=== PATIENT | female | born 1990 | race American Indian/Alaskan Native ===

== ENCOUNTER 2022-03-04 11:49 | Inpatient (IN) | payer MEDICAID ==
[2022-03-04] MEDS ORDERED: SODIUM CHLORIDE 0.9% 1000 ML 1,000 ML IV ONE ×2 (12:03→14:01)
[2022-03-04] MEDS ORDERED: NALOXONE 2 MG/2 ML INJ ONE (12:14)
[2022-03-04] MEDS ORDERED: NALOXONE 0.4 MG/1 ML INJ IV ONE (12:15)
[2022-03-04] MEDS ORDERED: NALOXONE 2 MG/2 ML 2 MG in SODIUM CHLORIDE 0.9% 500 ML 500 ML IV ONE (12:16)
[2022-03-04 12:43] LABS: Hematocrit 38.2 % (30.3-42.9); Mean Corpuscular HGB Conc 31 % (30-34); Mean Corpuscular Volume 87 fl (79-97); Platelet Count 447 K/mm3 (140-440); Red Blood Count 4.39 M/mm3 (3.65-5.03); Red Cell Distribution Width 16.3 % (13.2-15.2)
[2022-03-04 12:52] LABS: Amphetamine Screen,Urine Negative; Benzodiazepines Screen,Urine Negative; Methadone Screen,Urine Negative; Opiate Screen,Urine Negative
[2022-03-04 12:54] LABS: Cannabinoid Screen,Urine Positive; Cocaine Screen,Urine Positive
[2022-03-04 12:55] LABS: INR 1.12 (0.87-1.13)
[2022-03-04 13:03] LABS: Albumin 4.5 g/dL (3.9-5); Calcium 9.2 mg/dL (8.4-10.2)
[2022-03-04 13:06] LABS: Bacteria,Urine 1+ /HPF (Negative); Bilirubin,Urine NEG (Negative); Blood,Urine SM (Negative); Color,Urine Straw (Yellow); Mucus,Urine FEW /HPF; Urobilinogen,Urine < 2.0 mg/dL (<2.0)
[2022-03-04 13:07] LABS: HCG Qualitative,Urine Positive (Negative)
[2022-03-04 13:19] LABS: Band Neutrophils # (Manual) 0.9 K/mm3; Basophils % (Manual) 0 % (0.0-1.8); Eosinophils % (Manual) 0 % (0.0-4.3); Total Cells Counted 100
[2022-03-04 13:20] LABS: Anisocytosis 1+; Platelet Estimate Consistent w Auto
--- NOTE | 2022-03-04 15:21 | XRay Report ---
CHEST 1 VIEW INDICATION / CLINICAL INFORMATION: Altered Mental Status. COMPARISON: None available. FINDINGS: SUPPORT DEVICES: None. HEART / MEDIASTINUM: No significant abnormality. LUNGS / PLEURA: There is prominent confluent opacity throughout the left upper and midlung field. The right lung is grossly clear. No large pleural effusion or suggestion of pulmonary edema. No pneumoth orax. ADDITIONAL FINDINGS: No significant additional findings. IMPRESSION: 1. Large area of pulmonary opacity throughout the left lung. The appearance is most likely secondary to pneumonia. Please correlate clinically. Signer Name: Chitra Echeverria MD Signed: 03/04/2022 3:17 PM Workstation Name: [id number]
[2022-03-04] MEDS ORDERED: cefTRIAXone/NS 1 GM/50 ML 1 GM/50 ML BAG IV ONE (15:33)
--- NOTE | 2022-03-04 15:38 | Ultrasound Report ---
ULTRASOUND OBSTETRIC , FIRST TRIMESTER INDICATION / CLINICAL INFORMATION: AMS. Clinical Gestational Age (GA) in weeks, days: Unknown TECHNIQUE: Transabdominal. COMPARISON: None available. FINDINGS: UTERUS: The uterus has a normal appearance measuring 8.5 x 4.4 x 4.8 cm. Endometrial thickness is nor mal measuring 3 mm. No focal uterine mass identified. No gestational sac identified. ADNEXA: No significant abnormality. Both ovaries are well-visualized and appear normal. No adnexal ma ss. FREE FLUID: None. ADDITIONAL FINDINGS: None. IMPRESSION: 1. No evidence of IUP at this time. Please correlate with hCG levels. Signer Name: Chitra Echeverria MD Signed: 03/04/2022 3:34 PM Workstation Name: [id number]
--- NOTE | 2022-03-04 16:02 | Emergency Department Report ---
ED Altered Mental Status HPI - General Chief Complaint: Altered Mental Status Stated Complaint: AMS Time Seen by Provider: 03/04/22 11:58 Source: EMS Mode of arrival: Stretcher Limitations: Altered Mental Status - History of Present Illness Initial Comments: PT ARRIVING FROM HOME FOR AMS. AFIB RVR 140-160. NARCAN 0.4MG GIVEN. NO RESPONSE. HX SEIZURES 31 years old with past MH of HtN , brougt in to ER by ambulance for altered mental status , her kids tried to wake her up but she was unresponisve, not sure if she had seizure or not, but she doesn;t have history , EMS stated she reposnded well to narcan. pt admit to drug use , sleep and drowsy but arousable MD Complaint: altered mental status, confusion -: Gradual, hour(s) Severity: moderate Consistency of Symptoms: constant Context: drug abuse Associated Symptoms: denies: denies other symptoms, chest pain, cough, diaphoresis, fever/chills, headaches - Related Data Allergies Allergy/AdvReac Type Severity Reaction Status Date / Time No Known Allergies Allergy Unverified 03/04/22 12:40 ED Review of Systems ROS: Stated complaint: AMS Other details as noted in HPI Comment: Unobtainable due to pts medical conditions ED Past Medical Hx - Past Medical History Previous Medical History?: Yes Hx Hypertension: Yes - Surgical History Past Surgical History?: Yes Additional Surgical History: 2020 ED Physical Exam - General Limitations: Altered Mental Status General appearance: alert, lethargic - Head Head exam: Present: atraumatic, normocephalic - Eye Eye exam: Present: normal appearance - ENT ENT exam: Present: mucous membranes moist - Neck Neck exam: Present: normal inspection - Respiratory Respiratory exam: Present: normal lung sounds bilaterally, respiratory distress, rhonchi - Cardiovascular Cardiovascular Exam: Present: normal rhythm, tachycardia. Absent: systolic murmur, diastolic murmur, rubs, gallop - GI/Abdominal GI/Abdominal exam: Present: soft, normal bowel sounds - Extremities Exam Extremities exam: Present: normal inspection - Back Exam Back exam: Present: normal inspection - Expanded Neurological Exam Expanded Best Eye Response (Gail): (3) open to voice Best Motor Response (Bixby): (6) obeys commands Best Verbal Response (Bixby): (4) confused conversation Bixby Total: 13 - Skin Skin exam: Present: warm, dry, intact, normal color. Absent: rash ED Course Vital Signs 03/04/22 03/04/22 03/04/22 12:31 12:44 12:45 Temperature Pulse Rate 149 H 149 H 151 H Respiratory 19 14 Rate Blood Pressure Blood Pressure [Right] O2 Sat by Pulse 100 100 Oximetry 03/04/22 03/04/22 03/04/22 12:48 12:52 13:01 Temperature 97.2 F L Pulse Rate 151 H 149 H Respiratory 15 18 21 Rate Blood Pressure 107/74 Blood Pressure 107/74 [Right] O2 Sat by Pulse 100 94 82 L Oximetry 03/04/22 03/04/22 03/04/22 13:15 13:31 13:45 Temperature Pulse Rate 136 H 151 H 147 H Respiratory 18 15 13 Rate Blood Pressure 107/76 110/69 110/76 Blood Pressure [Right] O2 Sat by Pulse 98 100 100 Oximetry 03/04/22 03/04/22 14:01 14:15 Temperature Pulse Rate 150 H 150 H Respiratory 13 15 Rate Blood Pressure 100/76 102/72 Blood Pressure [Right] O2 Sat by Pulse 100 84 Oximetry - Lab Data Result diagrams: 03/04/22 12:20 03/04/22 12:20 Lab Results 03/04/22 03/04/22 03/04/22 Range/Units 12:20 12:20 12:20 WBC 13.1 H (4.5-11.0) K/mm3 RBC 4.39 (3.65-5.03) M/mm3 Hgb 12.0 (10.1-14.3) gm/dl Hct 38.2 (30.3-42.9) % MCV 87 (79-97) fl MCH 27 L (28-32) pg MCHC 31 (30-34) % RDW 16.3 H (13.2-15.2) % Plt Count 447 H (140-440) K/mm3 Add Manual Diff Complete Total Counted 100 Seg Neuts % (Manual) 78.0 H (40.0-70.0) % Band Neutrophils % 7.0 % Lymphocytes % (Manual) 11.0 L (13.4-35.0) % Reactive Lymphs % (Man) 0 % Monocytes % (Manual) 3.0 (0.0-7.3) % Eosinophils % (Manual) 0 (0.0-4.3) % Basophils % (Manual) 0 (0.0-1.8) % Metamyelocytes % 1.0 % Myelocytes % 0 % Promyelocytes % 0 % Blast Cells % 0 % Nucleated RBC % Not Reportable Seg Neutrophils # Man 10.2 H (1.8-7.7) K/mm3 Band Neutrophils # 0.9 K/mm3 Lymphocytes # (Manual) 1.4 (1.2-5.4) K/mm3 Abs React Lymphs (Man) 0.0 K/mm3 Monocytes # (Manual) 0.4 (0.0-0.8) K/mm3 Eosinophils # (Manual) 0.0 (0.0-0.4) K/mm3 Basophils # (Manual) 0.0 (0.0-0.1) K/mm3 Metamyelocytes # 0.1 K/mm3 Myelocytes # 0.0 K/mm3 Promyelocytes # 0.0 K/mm3 Blast Cells # 0.0 K/mm3 WBC Morphology Not Reportable Hypersegmented Neuts Not Reportable Hyposegmented Neuts Not Reportable Hypogranular Neuts Not Reportable Smudge Cells Not Reportable Toxic Granulation Not Reportable Toxic Vacuolation Not Reportable Dohle Bodies Not Reportable Pelger-Huet Anomaly Not Reportable Kateryna Rods Not Reportable Platelet Estimate Consistent w auto Clumped Platelets Not Reportable Plt Clumps, EDTA Not Reportable Large Platelets Not Reportable Giant Platelets Not Reportable Platelet Satelliting Not Reportable Plt Morphology Comment Not Reportable RBC Morphology Not Reportable Dimorphic RBCs Not Reportable Polychromasia Not Reportable Hypochromasia Not Reportable Poikilocytosis Not Reportable Anisocytosis 1+ Microcytosis Not Reportable Macrocytosis Not Reportable Spherocytes Not Reportable Pappenheimer Bodies Not Reportable Sickle Cells Not Reportable Target Cells Not Reportable Tear Drop Cells Not Reportable Ovalocytes Not Reportable Helmet Cells Not Reportable [place] Bodies Not Reportable [place] Rings Not Reportable Tamiko Cells Not Reportable Bite Cells Not Reportable Crenated Cell Not Reportable Elliptocytes Not Reportable Acanthocytes (Spur) Not Reportable Rouleaux Not Reportable Hemoglobin C Crystals Not Reportable Schistocytes Not Reportable Malaria parasites Not Reportable Chucho Bodies Not Reportable Hem Pathologist Commnt No PT 15.7 H (12.2-14.9) Sec. INR 1.12 (0.87-1.13) D-Dimer 3882.77 H (0-234) ng/mlDDU Sodium 139 (137-145) mmol/L Potassium 5.0 (3.6-5.0) mmol/L Chloride 99.6 (98-107) mmol/L Carbon Dioxide 15 L (22-30) mmol/L Anion Gap 29 mmol/L BUN 18 H (7-17) mg/dL Creatinine 2.1 H (0.6-1.2) mg/dL Estimated GFR 28 ml/min BUN/Creatinine Ratio 9 % Glucose 81 (65-100) mg/dL Lactic Acid (0.7-2.0) mmol/L Calcium 9.2 (8.4-10.2) mg/dL Total Bilirubin 0.50 (0.1-1.2) mg/dL AST 206 H (5-40) units/L ALT 197 H (7-56) units/L Alkaline Phosphatase 140 H (35-129) units/L Total Creatine Kinase (30-135) units/L Total Protein 8.5 H (6.3-8.2) g/dL Albumin 4.5 (3.9-5) g/dL Albumin/Globulin Ratio 1.1 % HCG, Quant (0-4) mIU/mL Urine Color (Yellow) Urine Turbidity (Clear) Urine pH (5.0-7.0) Ur Specific [place] (1.003-1.030) Urine Protein (Negative) mg/dL Urine Glucose (UA) (Negative) mg/dL Urine Ketones (Negative) mg/dL Urine Blood (Negative) Urine Nitrite (Negative) Urine Bilirubin (Negative) Urine Urobilinogen (<2.0) mg/dL Ur Leukocyte Esterase (Negative) Urine WBC (Auto) (0.0-6.0) /HPF Urine RBC (Auto) (0.0-6.0) /HPF U Epithel Cells (Auto) (0-13.0) /HPF Urine Bacteria (Auto) (Negative) /HPF Urine Mucus /HPF Urine HCG, Qual (Negative) Salicylates (2.8-20.0) mg/dL Urine Opiates Screen Urine Methadone Screen Acetaminophen (10.0-30.0) ug/mL Ur Barbiturates Screen Ur Phencyclidine Scrn Ur Amphetamines Screen U Benzodiazepines Scrn Urine Cocaine Screen U Marijuana (THC) Screen Drugs of Abuse Note Plasma/Serum Alcohol (0-0.07) % 03/04/22 03/04/22 03/04/22 Range/Units 12:20 12:20 12:20 WBC (4.5-11.0) K/mm3 RBC (3.65-5.03) M/mm3 Hgb (10.1-14.3) gm/dl Hct (30.3-42.9) % MCV (79-97) fl MCH (28-32) pg MCHC (30-34) % RDW (13.2-15.2) % Plt Count (140-440) K/mm3 Add Manual Diff Total Counted Seg Neuts % (Manual) (40.0-70.0) % Band Neutrophils % % Lymphocytes % (Manual) (13.4-35.0) % Reactive Lymphs % (Man) % Monocytes % (Manual) (0.0-7.3) % Eosinophils % (Manual) (0.0-4.3) % Basophils % (Manual) (0.0-1.8) % Metamyelocytes % % Myelocytes % % Promyelocytes % % Blast Cells % % Nucleated RBC % Seg Neutrophils # Man (1.8-7.7) K/mm3 Band Neutrophils # K/mm3 Lymphocytes # (Manual) (1.2-5.4) K/mm3 Abs React Lymphs (Man) K/mm3 Monocytes # (Manual) (0.0-0.8) K/mm3 Eosinophils # (Manual) (0.0-0.4) K/mm3 Basophils # (Manual) (0.0-0.1) K/mm3 Metamyelocytes # K/mm3 Myelocytes # K/mm3 Promyelocytes # K/mm3 Blast Cells # K/mm3 WBC Morphology Hypersegmented Neuts Hyposegmented Neuts Hypogranular Neuts Smudge Cells Toxic Granulation Toxic Vacuolation Dohle Bodies Pelger-Huet Anomaly Kateryna Rods Platelet Estimate Clumped Platelets Plt Clumps, EDTA Large Platelets Giant Platelets Platelet Satelliting Plt Morphology Comment RBC Morphology Dimorphic RBCs Polychromasia Hypochromasia Poikilocytosis Anisocytosis Microcytosis Macrocytosis Spherocytes Pappenheimer Bodies Sickle Cells Target Cells Tear Drop Cells Ovalocytes Helmet Cells [place] Bodies [place] Rings Tamiko Cells Bite Cells Crenated Cell Elliptocytes Acanthocytes (Spur) Rouleaux Hemoglobin C Crystals Schistocytes Malaria parasites Chucho Bodies Hem Pathologist Commnt PT (12.2-14.9) Sec. INR (0.87-1.13) D-Dimer (0-234) ng/mlDDU Sodium (137-145) mmol/L Potassium (3.6-5.0) mmol/L Chloride (98-107) mmol/L Carbon Dioxide (22-30) mmol/L Anion Gap mmol/L BUN (7-17) mg/dL Creatinine (0.6-1.2) mg/dL Estimated GFR ml/min BUN/Creatinine Ratio % Glucose (65-100) mg/dL Lactic Acid 8.40 H* (0.7-2.0) mmol/L Calcium (8.4-10.2) mg/dL Total Bilirubin (0.1-1.2) mg/dL AST (5-40) units/L ALT (7-56) units/L Alkaline Phosphatase (35-129) units/L Total Creatine Kinase 112 (30-135) units/L Total Protein (6.3-8.2) g/dL Albumin (3.9-5) g/dL Albumin/Globulin Ratio % HCG, Quant (0-4) mIU/mL Urine Color (Yellow) Urine Turbidity (Clear) Urine pH (5.0-7.0) Ur Specific [place] (1.003-1.030) Urine Protein (Negative) mg/dL Urine Glucose (UA) (Negative) mg/dL Urine Ketones (Negative) mg/dL Urine Blood (Negative) Urine Nitrite (Negative) Urine Bilirubin (Negative) Urine Urobilinogen (<2.0) mg/dL Ur Leukocyte Esterase (Negative) Urine WBC (Auto) (0.0-6.0) /HPF Urine RBC (Auto) (0.0-6.0) /HPF U Epithel Cells (Auto) (0-13.0) /HPF Urine Bacteria (Auto) (Negative) /HPF Urine Mucus /HPF Urine HCG, Qual (Negative) Salicylates (2.8-20.0) mg/dL Urine Opiates Screen Urine Methadone Screen Acetaminophen (10.0-30.0) ug/mL Ur Barbiturates Screen Ur Phencyclidine Scrn Ur Amphetamines Screen U Benzodiazepines Scrn Urine Cocaine Screen U Marijuana (THC) Screen Drugs of Abuse Note Plasma/Serum Alcohol < 0.01 (0-0.07) % 03/04/22 03/04/22 03/04/22 Range/Units 12:20 12:20 12:20 WBC (4.5-11.0) K/mm3 RBC (3.65-5.03) M/mm3 Hgb (10.1-14.3) gm/dl Hct (30.3-42.9) % MCV (79-97) fl MCH (28-32) pg MCHC (30-34) % RDW (13.2-15.2) % Plt Count (140-440) K/mm3 Add Manual Diff Total Counted Seg Neuts % (Manual) (40.0-70.0) % Band Neutrophils % % Lymphocytes % (Manual) (13.4-35.0) % Reactive Lymphs % (Man) % Monocytes % (Manual) (0.0-7.3) % Eosinophils % (Manual) (0.0-4.3) % Basophils % (Manual) (0.0-1.8) % Metamyelocytes % % Myelocytes % % Promyelocytes % % Blast Cells % % Nucleated RBC % Seg Neutrophils # Man (1.8-7.7) K/mm3 Band Neutrophils # K/mm3 Lymphocytes # (Manual) (1.2-5.4) K/mm3 Abs React Lymphs (Man) K/mm3 Monocytes # (Manual) (0.0-0.8) K/mm3 Eosinophils # (Manual) (0.0-0.4) K/mm3 Basophils # (Manual) (0.0-0.1) K/mm3 Metamyelocytes # K/mm3 Myelocytes # K/mm3 Promyelocytes # K/mm3 Blast Cells # K/mm3 WBC Morphology Hypersegmented Neuts Hyposegmented Neuts Hypogranular Neuts Smudge Cells Toxic Granulation Toxic Vacuolation Dohle Bodies Pelger-Huet Anomaly Kateryna Rods Platelet Estimate Clumped Platelets Plt Clumps, EDTA Large Platelets Giant Platelets Platelet Satelliting Plt Morphology Comment RBC Morphology Dimorphic RBCs Polychromasia Hypochromasia Poikilocytosis Anisocytosis Microcytosis Macrocytosis Spherocytes Pappenheimer Bodies Sickle Cells Target Cells Tear Drop Cells Ovalocytes Helmet Cells [place] Bodies [place] Rings [place] Cells Bite Cells Crenated Cell Elliptocytes Acanthocytes (Spur) Rouleaux Hemoglobin C Crystals Schistocytes Malaria parasites Chucho Bodies Hem Pathologist Commnt PT (12.2-14.9) Sec. INR (0.87-1.13) D-Dimer (0-234) ng/mlDDU Sodium (137-145) mmol/L Potassium (3.6-5.0) mmol/L Chloride (98-107) mmol/L Carbon Dioxide (22-30) mmol/L Anion Gap mmol/L BUN (7-17) mg/dL Creatinine (0.6-1.2) mg/dL Estimated GFR ml/min BUN/Creatinine Ratio % Glucose (65-100) mg/dL Lactic Acid (0.7-2.0) mmol/L Calcium (8.4-10.2) mg/dL Total Bilirubin (0.1-1.2) mg/dL AST (5-40) units/L ALT (7-56) units/L Alkaline Phosphatase (35-129) units/L Total Creatine Kinase (30-135) units/L Total Protein (6.3-8.2) g/dL Albumin (3.9-5) g/dL Albumin/Globulin Ratio % HCG, Quant < 2 (0-4) mIU/mL Urine Color (Yellow) Urine Turbidity (Clear) Urine pH (5.0-7.0) Ur Specific [place] (1.003-1.030) Urine Protein (Negative) mg/dL Urine Glucose (UA) (Negative) mg/dL Urine Ketones (Negative) mg/dL Urine Blood (Negative) Urine Nitrite (Negative) Urine Bilirubin (Negative) Urine Urobilinogen (<2.0) mg/dL Ur Leukocyte Esterase (Negative) Urine WBC (Auto) (0.0-6.0) /HPF Urine RBC (Auto) (0.0-6.0) /HPF U Epithel Cells (Auto) (0-13.0) /HPF Urine Bacteria (Auto) (Negative) /HPF Urine Mucus /HPF Urine HCG, Qual (Negative) Salicylates < 0.3 L (2.8-20.0) mg/dL Urine Opiates Screen Urine Methadone Screen Acetaminophen 5.0 L (10.0-30.0) ug/mL Ur Barbiturates Screen Ur Phencyclidine Scrn Ur Amphetamines Screen U Benzodiazepines Scrn Urine Cocaine Screen U Marijuana (THC) Screen Drugs of Abuse Note Plasma/Serum Alcohol (0-0.07) % 03/04/22 03/04/22 Range/Units 12:31 12:31 WBC (4.5-11.0) K/mm3 RBC (3.65-5.03) M/mm3 Hgb (10.1-14.3) gm/dl Hct (30.3-42.9) % MCV (79-97) fl MCH (28-32) pg MCHC (30-34) % RDW (13.2-15.2) % Plt Count (140-440) K/mm3 Add Manual Diff Total Counted Seg Neuts % (Manual) (40.0-70.0) % Band Neutrophils % % Lymphocytes % (Manual) (13.4-35.0) % Reactive Lymphs % (Man) % Monocytes % (Manual) (0.0-7.3) % Eosinophils % (Manual) (0.0-4.3) % Basophils % (Manual) (0.0-1.8) % Metamyelocytes % % Myelocytes % % Promyelocytes % % Blast Cells % % Nucleated RBC % Seg Neutrophils # Man (1.8-7.7) K/mm3 Band Neutrophils # K/mm3 Lymphocytes # (Manual) (1.2-5.4) K/mm3 Abs React Lymphs (Man) K/mm3 Monocytes # (Manual) (0.0-0.8) K/mm3 Eosinophils # (Manual) (0.0-0.4) K/mm3 Basophils # (Manual) (0.0-0.1) K/mm3 Metamyelocytes # K/mm3 Myelocytes # K/mm3 Promyelocytes # K/mm3 Blast Cells # K/mm3 WBC Morphology Hypersegmented Neuts Hyposegmented Neuts Hypogranular Neuts Smudge Cells Toxic Granulation Toxic Vacuolation Dohle Bodies Pelger-Huet Anomaly Kateryna Rods Platelet Estimate Clumped Platelets Plt Clumps, EDTA Large Platelets Giant Platelets Platelet Satelliting Plt Morphology Comment RBC Morphology Dimorphic RBCs Polychromasia Hypochromasia Poikilocytosis Anisocytosis Microcytosis Macrocytosis Spherocytes Pappenheimer Bodies Sickle Cells Target Cells Tear Drop Cells Ovalocytes Helmet Cells [place] Bodies [place] Rings Tamiko Cells Bite Cells Crenated Cell Elliptocytes Acanthocytes (Spur) Rouleaux Hemoglobin C Crystals Schistocytes Malaria parasites Chucho Bodies Hem Pathologist Commnt PT (12.2-14.9) Sec. INR (0.87-1.13) D-Dimer (0-234) ng/mlDDU Sodium (137-145) mmol/L Potassium (3.6-5.0) mmol/L Chloride (98-107) mmol/L Carbon Dioxide (22-30) mmol/L Anion Gap mmol/L BUN (7-17) mg/dL Creatinine (0.6-1.2) mg/dL Estimated GFR ml/min BUN/Creatinine Ratio % Glucose (65-100) mg/dL Lactic Acid (0.7-2.0) mmol/L Calcium (8.4-10.2) mg/dL Total Bilirubin (0.1-1.2) mg/dL AST (5-40) units/L ALT (7-56) units/L Alkaline Phosphatase (35-129) units/L Total Creatine Kinase (30-135) units/L Total Protein (6.3-8.2) g/dL Albumin (3.9-5) g/dL Albumin/Globulin Ratio % HCG, Quant (0-4) mIU/mL Urine Color Straw (Yellow) Urine Turbidity Clear (Clear) Urine pH 7.0 (5.0-7.0) Ur Specific [place] 1.005 (1.003-1.030) Urine Protein 100 mg/dl (Negative) mg/dL Urine Glucose (UA) Neg (Negative) mg/dL Urine Ketones Neg (Negative) mg/dL Urine Blood Sm (Negative) Urine Nitrite Neg (Negative) Urine Bilirubin Neg (Negative) Urine Urobilinogen < 2.0 (<2.0) mg/dL Ur Leukocyte Esterase Neg (Negative) Urine WBC (Auto) 4.0 (0.0-6.0) /HPF Urine RBC (Auto) 3.0 (0.0-6.0) /HPF U Epithel Cells (Auto) 2.0 (0-13.0) /HPF Urine Bacteria (Auto) 1+ (Negative) /HPF Urine Mucus Few /HPF Urine HCG, Qual Positive A (Negative) Salicylates (2.8-20.0) mg/dL Urine Opiates Screen Negative Urine Methadone Screen Negative Acetaminophen (10.0-30.0) ug/mL Ur Barbiturates Screen Negative Ur Phencyclidine Scrn Negative Ur Amphetamines Screen Negative U Benzodiazepines Scrn Negative Urine Cocaine Screen Positive U Marijuana (THC) Screen Positive Drugs of Abuse Note Disclamer Plasma/Serum Alcohol (0-0.07) % - EKG Data -: EKG Interpreted by Tn EKG shows normal: sinus rhythm Rate: tachycardia Interpretation: LVH - Radiology Data Radiology results: report reviewed, image reviewed - Medical Decision Making work up showed : - tachycardia : sepsis , fluids given abx given - Hypoxia: 2ry to pneumonia , abx started , V/Q scan pending - ANTONINO : fluids given - LEevated liver enzymes : drug abuse - Sepsis : abx and fluids Critical care attestation.: If time is entered above; I have spent that time in minutes in the direct care of this critically ill patient, excluding procedure time. ED Disposition Clinical Impression: Altered mental status, Cocaine abuse, SOB (shortness of breath), ANTONINO (acute kidney injury), Hypoxia, Tachycardia, Sepsis, Pneumonia Disposition: 09 ADMITTED INPATIENT Is pt being admited?: Yes Does the pt Need Aspirin: No Condition: Stable Instructions: Bacterial Pneumonia (ED) Referrals: PRIMARY CARE, [Primary Care Provider] - 3-5 Days
--- NOTE | 2022-03-04 16:05 | History and Physical Report ---
History of Present Illness Chief complaint: Unresponsive History of present illness: 31 YO Female with HTN, ETOH Dependence, Nicotine Dependence presents to ED for evaluation. Patient is confused and lethargic at the time my evaluation and is unable to provide detailed history. Patient history taken EMS staff, ED staff, as well as the patient's daughters and her mother who at bedside during exam and interview. As per patient daughters the patient was found in her bed to be confused with saliva emanating from her mouth. Discharge and subsequently notified the grandmother who instructed them to call EMS. EMS was notified and upon arrival the patient was found to be in distress and subsequently transported to [facility] for further care and evaluation of the aforementioned symptoms. The patient was seen and evaluated in the emergency department. All lab and imaging studies reviewed. Patient was found to have a pulse oximetry of 84% on room air which is consistent with acute hypoxemic respiratory failure. Chest x-ray revealed pneumonia, patient also found to have acidosis, toxic metabolic encephalopathy, ANTONINO with ATN, and new onset atrial fibrillation. Patient admitted to IMCU and initiated on sepsis protocol as well as pneumonia protocol. Cardiology team consulted in ED. Patient is lethargic with diminished cognition but has a positive gag reflex and is able to protect her airway without difficulty. No prior admission for review. No medication listed at time of admission for reconciliation. Advanced care planning conducted in ED. Past History Past Medical History: hypertension, other (See HPI) Past Surgical History: Social history: single, lives with family, smoking, alcohol abuse. denies: prescription drug abuse, IV drug use Family history: diabetes, hypertension Medications and Allergies Allergies Allergy/AdvReac Type Severity Reaction Status Date / Time No Known Allergies Allergy Unverified 03/04/22 12:40 Active Meds: Active Medications Naloxone HCl 2 mg/ Sodium (Chloride) 502 mls @ 100.4 mls/hr IV DIRECT ONE; Protocol Stop: 03/04/22 17:15 Last Admin: 03/04/22 15:07 Dose: Not Given Review of Systems ROS unobtainable: due to mental status Exam - Constitutional Vitals: Temp Pulse Resp BP Pulse Ox 97.2 F L 150 H 15 102/72 84 03/04/22 12:52 03/04/22 14:15 03/04/22 14:15 03/04/22 14:15 03/04/22 14:15 General appearance: Present: mild distress - EENT Eyes: Present: miosis ENT: hearing intact - Neck Neck: Present: supple, normal ROM - Respiratory Respiratory effort: labored Respiratory: left: diminished - Cardiovascular Rhythm: other (Tachycardia, hypotensive) - Extremities Extremities: pulses symmetrical, No edema Peripheral Pulses: within normal limits - Abdominal General gastrointestinal: Present: soft, non-tender, non-distended, normal bowel sounds Female genitourinary: Present: normal - Integumentary Integumentary: Present: dry, clammy, decreased turgor - Musculoskeletal Musculoskeletal: generalized weakness - Psychiatric Psychiatric: no appropriate mood/affect, no intact judgment & insight, no memory intact - Neurologic Neurologic: CNII-XII intact, no focal deficits, moves all extremities, no gait normal Results - Labs CBC & Chem 7: 03/04/22 12:20 03/04/22 12:20 Labs: Abnormal lab results 03/04/22 03/04/22 03/04/22 Range/Units 12:20 12:20 12:20 WBC 13.1 H (4.5-11.0) K/mm3 MCH 27 L (28-32) pg RDW 16.3 H (13.2-15.2) % Plt Count 447 H (140-440) K/mm3 Seg Neuts % (Manual) 78.0 H (40.0-70.0) % Lymphocytes % (Manual) 11.0 L (13.4-35.0) % Seg Neutrophils # Man 10.2 H (1.8-7.7) K/mm3 PT 15.7 H (12.2-14.9) Sec. D-Dimer 3882.77 H (0-234) ng/mlDDU Carbon Dioxide 15 L (22-30) mmol/L BUN 18 H (7-17) mg/dL Creatinine 2.1 H (0.6-1.2) mg/dL Lactic Acid (0.7-2.0) mmol/L AST 206 H (5-40) units/L ALT 197 H (7-56) units/L Alkaline Phosphatase 140 H (35-129) units/L Total Protein 8.5 H (6.3-8.2) g/dL Urine HCG, Qual (Negative) Salicylates (2.8-20.0) mg/dL Acetaminophen (10.0-30.0) ug/mL 03/04/22 03/04/22 03/04/22 Range/Units 12:20 12:20 12:20 WBC (4.5-11.0) K/mm3 MCH (28-32) pg RDW (13.2-15.2) % Plt Count (140-440) K/mm3 Seg Neuts % (Manual) (40.0-70.0) % Lymphocytes % (Manual) (13.4-35.0) % Seg Neutrophils # Man (1.8-7.7) K/mm3 PT (12.2-14.9) Sec. D-Dimer (0-234) ng/mlDDU Carbon Dioxide (22-30) mmol/L BUN (7-17) mg/dL Creatinine (0.6-1.2) mg/dL Lactic Acid 8.40 H* (0.7-2.0) mmol/L AST (5-40) units/L ALT (7-56) units/L Alkaline Phosphatase (35-129) units/L Total Protein (6.3-8.2) g/dL Urine HCG, Qual (Negative) Salicylates < 0.3 L (2.8-20.0) mg/dL Acetaminophen 5.0 L (10.0-30.0) ug/mL 03/04/22 Range/Units 12:31 WBC (4.5-11.0) K/mm3 MCH (28-32) pg RDW (13.2-15.2) % Plt Count (140-440) K/mm3 Seg Neuts % (Manual) (40.0-70.0) % Lymphocytes % (Manual) (13.4-35.0) % Seg Neutrophils # Man (1.8-7.7) K/mm3 PT (12.2-14.9) Sec. D-Dimer (0-234) ng/mlDDU Carbon Dioxide (22-30) mmol/L BUN (7-17) mg/dL Creatinine (0.6-1.2) mg/dL Lactic Acid (0.7-2.0) mmol/L AST (5-40) units/L ALT (7-56) units/L Alkaline Phosphatase (35-129) units/L Total Protein (6.3-8.2) g/dL Urine HCG, Qual Positive A (Negative) Salicylates (2.8-20.0) mg/dL Acetaminophen (10.0-30.0) ug/mL Assessment and Plan - Patient Problems (1) Sepsis Current Visit: Yes Status: Acute Qualifiers: Severe sepsis acute organ dysfunction type: acute respiratory failure Plan to address problem: Sepsis protocol: Chest x-ray, CBC, CMP, supplemental oxygen, pulse oximetry, IV antibiotic therapy, IV fluid resuscitation therapy, maintain mean arterial pressure greater than or equal to 65, serial lactic acid level. IV pressor support as clinically indicated, blood culture. (2) Acute hypoxemic respiratory failure Current Visit: Yes Status: Acute Plan to address problem: Chest x-ray, supplemental oxygen, pulse oximetry, nebulizer therapy, D-dimer. VQ scan ordered and is pending at time of admission. CT chest without contrast ordered and pending at time of admission. Noninvasive positive pressure ventilation as clinically indicated. (3) Aspiration pneumonia Current Visit: Yes Status: Acute Plan to address problem: Pneumonia protocol: Chest x-ray, CBC, CMP, supplemental oxygen, pulse oximetry, nebulizer therapy, IV antibiotic therapy, blood culture., Aspiration precautions. (4) Toxic metabolic encephalopathy Current Visit: Yes Status: Acute Plan to address problem: Neuro check, CT head, seizure precaution, aspiration precautions, fall precautions, treat sepsis. (5) Acute kidney injury (ANTONINO) with acute tubular necrosis (ATN) Current Visit: Yes Status: Acute Plan to address problem: IV fluid resuscitation therapy, BMP, repeat BMP in a.m. to monitor serum cre atinine as well as GFR. Monitor urine output every shift. Monitor fluid balance. (6) Nicotine dependence Current Visit: Yes Status: Acute Qualifiers: Nicotine product type: cigarettes Plan to address problem: Smoking cessation counseling, supportive care, behavior change counseling, +15 minutes. (7) Alcohol dependence Current Visit: Yes Status: Acute Plan to address problem: CIWA protocol, thiamine, folic acid, multivitamin daily. Banana bag (8) Cocaine dependence Current Visit: Yes Status: Acute Qualifiers: Complication of substance-induced condition: with delirium Plan to address problem: Supportive care, continue medical management. (9) Acidosis Current Visit: Yes Status: Acute (10) Elevated liver function tests Current Visit: Yes Status: Acute Plan to address problem: Hepatitis panel, supportive care. Suspected secondary to alcohol dependence. Outpatient GI follow-up. (11) Atrial fibrillation Current Visit: Yes Status: Acute Qualifiers: Atrial fibrillation type: unspecified Qualified Code(s): I48.91 - Unspecified atrial fibrillation Plan to address problem: Suspected new onset atrial fibrillation, urine drug screen, echocardiogram, thyroid panel, magnesium level, cardiology team consulted. (12) DVT prophylaxis Current Visit: Yes Status: Acute Plan to address problem: SCD to bilateral lower extremities while in bed (13) Advance care planning Current Visit: Yes Status: Acute Plan to address problem: Disease education conducted, care plan discussed, diagnoses discussed, prognosis discussed, patient is full code. Patient knowledges understanding and agreement with care plan, +30 minutes.
[2022-03-04] MEDS ORDERED: SODIUM CHLORIDE 0.9% 1000 ML IV SOLN IV ONE (16:06)
[2022-03-04] MEDS ORDERED: VANCOMYCIN 1,500 MG in SODIUM CHLORIDE 0.9% 250ML 250 ML IV ONE (16:06)
[2022-03-04] MEDS ORDERED: ACETAMINOPHEN 325 MG TAB PO PRN (16:06)
[2022-03-04] MEDS ORDERED: HYDROmorphone 1 MG/1 ML INJ IV PRN ×2 (17:00)
[2022-03-04] MEDS ORDERED: SODIUM CHLORIDE 0.9% 1000 ML 1,000 ML IV SCH (17:00)
[2022-03-04] MEDS ORDERED: ALBUTEROL 2.5 MG/3 ML NEBU IH PRN (18:03)
[2022-03-04] MEDS ORDERED: oxyCODONE /ACETAMINOPHEN 5-325MG TAB PO PRN (18:03)
[2022-03-04] MEDS ORDERED: ONDANSETRON 4 MG/2 ML INJ IV PRN (18:03)
[2022-03-04] MEDS ORDERED: LORazepam 2 MG/ML VIAL IV PRN (18:28)
[2022-03-04] MEDS ORDERED: THIAMINE 100 MG TAB PO ONE ×2 (18:29→23:00)
[2022-03-04] MEDS ORDERED: MULTIVITAMINS ,THERAPEUTIC TAB PO ONE ×2 (18:29→23:00)
[2022-03-04] MEDS ORDERED: THIAMINE 100 MG, FOLIC ACID 1 MG, MULTIPLE VITAMIN INJ, ADULT 10 ML in SODIUM CHLORIDE ... IV ONE (18:29)
[2022-03-04] MEDS ORDERED: VANCOMYCIN PHARMACY TO DOSE IV SCH (19:00)
[2022-03-04 19:14] LABS: Alanine Aminotransferase 344 units/L (7-56)
[2022-03-04 19:15] LABS: Bilirubin,Direct < 0.2 mg/dL (0-0.2)
[2022-03-04] MEDS ORDERED: VANCOMYCIN 1,500 MG in SODIUM CHLORIDE 0.9% 500 ML 500 ML IV ONE (20:00)
--- NOTE | 2022-03-04 20:51 | Nuclear Medicine Report ---
NUCLEAR MEDICINE PERFUSION LUNG SCAN INDICATION / CLINICAL INFORMATION: SOB. TECHNIQUE: 5.2 mCi of Tc-99m MAA were given by IV. COMPARISON: Chest radiograph dated 03/04/22. FINDINGS: PERFUSION: No significant perfusion defects. ADDITIONAL FINDINGS: None. IMPRESSION: 1. Low probability for pulmonary embolism. Signer Name: Susan Mcgee MD Signed: 03/04/2022 8:46 PM Workstation Name: [id number]
[2022-03-04 21:14] LABS: ABG HCO3 18.1 mmol/L (20.0-26.0); ABG Methemoglobin 0.8 % (0.0-1.5); ABG Oxygen Saturation 81.8 % (95.0-99.0); ABG PH 7.232 pH Units (7.350-7.450); ABG PO2 50.1 mm Hg (80.0-90.0)
[2022-03-04 21:39] LABS: Free T4 (Free Thyroxine) 1.1 ng/dL (0.76-1.46)
[2022-03-05] MEDS ORDERED: hydrALAZINE 20 MG/1 ML INJ IV ONE (01:07)
[2022-03-05] MEDS ORDERED: PNEUMOCOCCAL 23 Valent 0.5 ML VIAL IM ONE (07:25)
[2022-03-05 08:31] LABS: Basophils % (Auto) 0.1 % (0.0-1.8); Hematocrit 31.5 % (30.3-42.9); Lymphocytes # (Auto) 1.3 K/mm3 (1.2-5.4); Lymphocytes % (Auto) 8.8 % (13.4-35.0); Mean Corpuscular HGB Conc 32 % (30-34); Mean Corpuscular Volume 85 fl (79-97); Monocytes # (Auto) 0.4 K/mm3 (0.0-0.8); Monocytes % (Auto) 3.1 % (0.0-7.3); Platelet Count 315 K/mm3 (140-440); Red Blood Count 3.72 M/mm3 (3.65-5.03); Red Cell Distribution Width 16.6 % (13.2-15.2)
[2022-03-05 08:35] LABS: Albumin 3.4 g/dL (3.9-5); Calcium 8.3 mg/dL (8.4-10.2)
--- NOTE | 2022-03-05 09:25 | Consultation ---
History of Present Illness Consult date: 03/05/22 Reason for Consult: Change in mentation History of present illness: Unresponsive History of present illness: 31 YO Female with HTN, ETOH Dependence, Nicotine Dependence presents to ED for evaluation. Patient is confused and lethargic at the time my evaluation and is unable to provide detailed history. Patient history taken EMS staff, ED staff, as well as the patient's daughters and her mother who at bedside during exam and interview. As per patient daughters the patient was found in her bed to be confused with saliva emanating from her mouth. Discharge and subsequently notified the grandmother who instructed them to call EMS. EMS was notified and upon arrival the patient was found to be in distress and subsequently transported to [facility] for further care and evaluation of the aforementioned symptoms. The patient was seen and evaluated in the emergency department. All lab and imaging studies reviewed. Patient was found to have a pulse oximetry of 84% on room air which is consistent with acute hypoxemic respiratory failure. Chest x-ray revealed pneumonia, patient also found to have acidosis, toxic m etabolic encephalopathy, ANTONINO with ATN, and new onset atrial fibrillation. Patient admitted to IM and initiated on sepsis protocol as well as pneumonia protocol. Cardiology team consulted in ED. Patient is lethargic with diminished cognition but has a positive gag reflex and is able to protect her airway without difficulty. No prior admission for review. No medication listed at time of admission for reconciliation. Advanced care planning conducted in ED. Neurology consulted for evaluation of change in mentation, she does not recall what happened at home admit smoking Marijuana but reluctatnt to admit Cocain abuse denied , denied hx of seizure or syncopy today she is alert oriented slightly sleepy , no focal weakness is appreciated Past History Past Medical History: hypertension, other (See HPI) Past Surgical History: Social history: single, lives with family, smoking, alcohol abuse. denies: prescription drug abuse, IV drug use Family history: diabetes, hypertension Medications and Allergies Allergies Allergy/AdvReac Type Severity Reaction Status Date / Time No Known Allergies Allergy Unverified 03/04/22 12:40 Active Meds: Active Medications Naloxone HCl 2 mg/ Sodium (Chloride) 502 mls @ 100.4 mls/hr IV DIRECT ONE; Protocol Stop: 03/04/22 17:15 Last Admin: 03/04/22 15:07 Dose: Not Given Review of Systems ROS unobtainable: due to mental status Past History Past Medical History: hypertension, other (See HPI) Past Surgical History: Social history: single, lives with family, smoking, alcohol abuse. denies: prescription drug abuse, IV drug use Family history: diabetes, hypertension Medications and Allergies Allergies Allergy/AdvReac Type Severity Reaction Status Date / Time No Known Allergies Allergy Unverified 03/04/22 12:40 Active Meds: Active Medications Acetaminophen (Acetaminophen 325 Mg Tab) 650 mg PO Q4H PRN PRN Reason: Pain MILD(1-3)/Fever >100.5/[place] Albuterol (Albuterol 2.5 Mg/3 Ml Nebu) 2.5 mg IH Q4HRT PRN PRN Reason: Shortness Of Breath Folic Acid (Folic Acid 1 Mg Tab) 1 mg PO QDAY WYATT Hydromorphone HCl (Hydromorphone 1 Mg/1 Ml Inj) 0.25 mg IV Q8H PRN PRN Reason: Pain, Moderate (4-6) Hydromorphone HCl (Hydromorphone 1 Mg/1 Ml Inj) 0.5 mg IV Q12H PRN PRN Reason: Pain , Severe (7-10) Sodium Chloride (Nacl 0.9% 1000 Ml) 1,000 mls @ 130 mls/hr IV DIRECT WYATT Vancomycin HCl (Vancomycin/Ns 1 Gm/250 Ml) 1 gm in 250 mls @ 166.667 mls/hr IV Q24H WYATT Ceftriaxone Sodium (Rocephin/Ns 1 Gm/50 Ml) 1 gm in 50 mls @ 100 mls/hr IV Q24H WYATT; Protocol Lorazepam (Lorazepam 2 Mg/Ml Vial) 2 mg IV Q1HR PRN PRN Reason: CIWA-Ar 8-15 Ondansetron HCl (Ondansetron 4 Mg/2 Ml Inj) 4 mg IV Q8H PRN PRN Reason: Nausea And Vomiting Oxycodone/Acetaminophen (Oxycodone /Acetaminophen 5-325mg Tab) 1 tab PO Q16H PRN PRN Reason: Pain, Moderate (4-6) Last Admin: 03/05/22 07:12 Dose: 1 tab Sodium Chloride (Sodium Chloride 0.9% 10 Ml Flush Syringe) 10 ml IV BID WYATT Last Admin: 03/04/22 22:39 Dose: 10 ml Sodium Chloride (Sodium Chloride 0.9% 10 Ml Flush Syringe) 10 ml IV PRN PRN PRN Reason: LINE FLUSH Physical Examination - Vital Signs Vital Signs: Vital Signs Pulse 149 H 03/04/22 12:31 - Constitutional General appearance: comfortable - EENT EENT: Present: PERRL, mucous membranes moist - Respiratory Respiratory: Present: lungs clear, decreased breath sounds, rhonchi - Cardiovascular Cardiovascular: Present: regular rate, normal S1, normal S2 Extremities: Present: no peripheral edema bilatateraly, no clubbing, cyanosis - Gastrointestinal Gastrointestinal: Present: normoactive bowel sounds - Integumentary Integumentary: Present: normal - Neurologic Cranial nerve examination: PERRL, EOMI, intact, facial droop Speech examination: intact Sensorimotor examination: intact Detailed motor examination: grossly full strength in - Level of Consciousness 1a. Level of Consciousness: alert/keenly responsive - LOC Questions 1b. LOC Questions: answers both correctly - LOC Command 1c. LOC Commands: performs tasks correctly - Best Gaze 2. Best Gaze: normal - Visual 3. Visual: no visual loss - Facial Palsy 4. Facial Palsy: minor paralysis - Motor Arm 5a. Motor Arm Left: no drift 5b. Motor Arm Right: no drift - Motor Leg 6a. Motor Leg Left: no drift 6b. Motor Leg Right: no drift - Limb Ataxia 7. Limb Ataxia: absent - Sensory 8. Sensory: normal - Best Language 9. Best Language: no aphasia - Dysarthria 10. Dysarthria: normal - Extinction and Inattention 11. Extinction/Inattention: no abnormality - Scoring Total Score: 1 Stroke Severity: Minor Stroke Results - Laboratory Findings CBC and BMP: 03/05/22 07:46 03/05/22 07:46 Abnormal Lab Findings: Abnormal Labs 03/04/22 03/04/22 03/04/22 12:20 12:20 12:20 WBC 13.1 H Hgb MCH 27 L RDW 16.3 H Plt Count 447 H Lymph % (Auto) Seg Neutrophils % Seg Neuts % (Manual) 78.0 H Lymphocytes % (Manual) 11.0 L Seg Neutrophils # Seg Neutrophils # Man 10.2 H PT 15.7 H D-Dimer 3882.77 H ABG pH ABG pO2 ABG HCO3 ABG O2 Saturation ABG Base Excess ABG Hemoglobin Oxyhemoglobin Carbon Dioxide 15 L BUN 18 H Creatinine 2.1 H Glucose Lactic Acid Calcium AST 206 H ALT 197 H Alkaline Phosphatase 140 H Total Protein 8.5 H Albumin Urine HCG, Qual Salicylates Acetaminophen 03/04/22 03/04/22 03/04/22 12:20 12:20 12:20 WBC Hgb MCH RDW Plt Count Lymph % (Auto) Seg Neutrophils % Seg Neuts % (Manual) Lymphocytes % (Manual) Seg Neutrophils # Seg Neutrophils # Man PT D-Dimer ABG pH ABG pO2 ABG HCO3 ABG O2 Saturation ABG Base Excess ABG Hemoglobin Oxyhemoglobin Carbon Dioxide BUN Creatinine Glucose Lactic Acid 8.40 H* Calcium AST ALT Alkaline Phosphatase Total Protein Albumin Urine HCG, Qual Salicylates < 0.3 L Acetaminophen 5.0 L 03/04/22 03/04/22 03/04/22 12:31 15:49 18:43 WBC Hgb MCH RDW Plt Count Lymph % (Auto) Seg Neutrophils % Seg Neuts % (Manual) Lymphocytes % (Manual) Seg Neutrophils # Seg Neutrophils # Man PT D-Dimer ABG pH ABG pO2 ABG HCO3 ABG O2 Saturation ABG Base Excess ABG Hemoglobin Oxyhemoglobin Carbon Dioxide BUN Creatinine Glucose Lactic Acid 3.60 H* Calcium AST 376 H ALT 344 H Alkaline Phosphatase 161 H Total Protein Albumin Urine HCG, Qual Positive A Salicylates Acetaminophen 03/04/22 03/04/22 03/05/22 20:47 Unknown 07:46 WBC 14.5 H Hgb 10.0 L MCH 27 L RDW 16.6 H Plt Count Lymph % (Auto) 8.8 L Seg Neutrophils % 88.0 H Seg Neuts % (Manual) Lymphocytes % (Manual) Seg Neutrophils # 12.8 H Seg Neutrophils # Man PT D-Dimer ABG pH 7.232 L ABG pO2 50.1 L ABG HCO3 18.1 L ABG O2 Saturation 81.8 L ABG Base Excess -9.0 L ABG Hemoglobin 11.1 L Oxyhemoglobin 79.8 L Carbon Dioxide BUN Creatinine Glucose Lactic Acid 2.70 H* Calcium AST ALT Alkaline Phosphatase Total Protein Albumin Urine HCG, Qual Salicylates Acetaminophen 03/05/22 07:46 WBC Hgb MCH RDW Plt Count Lymph % (Auto) Seg Neutrophils % Seg Neuts % (Manual) Lymphocytes % (Manual) Seg Neutrophils # Seg Neutrophils # Man PT D-Dimer ABG pH ABG pO2 ABG HCO3 ABG O2 Saturation ABG Base Excess ABG Hemoglobin Oxyhemoglobin Carbon Dioxide 20 L BUN Creatinine 1.3 H Glucose 129 H Lactic Acid Calcium 8.3 L AST 144 H ALT 249 H Alkaline Phosphatase 143 H Total Protein Albumin 3.4 L Urine HCG, Qual Salicylates Acetaminophen Assessment and Plan Assessment and Plan - Patient Problems # Encephalopathy, resolved -pt. presented to er with change in mentation -Ct brain not done -elevated BP 195/121 -lactic acidosis -AF new onset she is in SR currently -UDS is positive for cocaine and marijuana -Underlying pneumonia -elevated LVT -NIH today is #1 she is with slight left facial droop -Suggest MRI brain with gd -Echo cardiogram -blood culture -UDS? positive -- US is unremarkable # Sepsis -Sepsis protocol: Chest x-ray, CBC, CMP, supplemental oxygen, pulse oximetry, IV antibiotic therapy, IV fluid resuscitation therapy, maintain mean arterial pressure greater than or equal to 65, serial lactic acid level. IV pressor s upport as clinically indicated, blood culture. # Acute hypoxemic respiratory failure -Chest x-ray, supplemental oxygen, pulse oximetry, nebulizer therapy, D-dimer. VQ scan ordered and is pending at time of admission. CT chest without contrast ordered and pending at time of admission. Noninvasive positive pressure ventilation as clinically indicated. # Aspiration pneumonia -Pneumonia protocol: Chest x-ray, CBC, CMP, supplemental oxygen, pulse oximetry, nebulizer therapy, IV antibiotic therapy, blood culture., Aspiration precautions. # Acute kidney injury (ANTONINO) with acute tubular necrosis (ATN) -IV fluid resuscitation therapy, BMP, repeat BMP in a.m. to monitor serum creatinine as well as GFR. Monitor urine output every shift. Monitor fluid balance. # Nicotine dependence Smoking cessation counseling, supportive care, behavior change counseling, +15 minutes. # Alcohol dependence -CIWA protocol, thiamine, folic acid, multivitamin daily. Banana bag # Cocaine dependence -Supportive care, continue medical management. # Elevated liver function tests -Hepatitis panel, supportive care. Suspected secondary to alcohol dependence. Outpatient GI follow-up. # Atrial fibrillation -Suspected new onset atrial fibrillation, urine drug screen, echocardiogram, th yroid panel, magnesium level, cardiology team consulted. # DVT prophylaxis -SCD to bilateral lower extremities while in bed # Advance care planning -Disease education conducted, care plan discussed, diagnoses discussed, prognosis discussed, patient is full code. Patient knowledges understanding and agreement with care plan,
[2022-03-05] MEDS: FOLIC ACID 1 MG TAB PO SCH (09:49)
[2022-03-05 10:27] LABS: C-Reactive Protein 0.4 mg/dL (0.00-1.30)
--- NOTE | 2022-03-05 10:37 | Progress Note ---
Assessment and Plan Assessment and plan: 31 YO Female with HTN, ETOH Dependence, Nicotine Dependence presents to ED for evaluation. Patient is confused and lethargic at the time my evaluation and is unable to provide detailed history. Patient history taken EMS staff, ED staff, as well as the patient's daughters and her mother who at bedside during exam and interview. As per patient daughters the patient was found in her bed to be confused with saliva emanating from her mouth. Discharge and subsequently notified the grandmother who instructed them to call EMS. EMS was notified and upon arrival the patient was found to be in distress and subsequently transported to [facility] for further care and evaluation of the aforementioned symptoms. The patient was seen and evaluated in the emergency department. All lab and imaging studies reviewed. Patient was found to have a pulse oximetry of 84% on room air which is consistent with acute hypoxemic respiratory failure. Chest x-ray revealed pneumonia, patient also found to have acidosis, toxic metabolic encephalopathy, ANTONINO with ATN, and new onset atrial fibrillation. Patient admitted to IMCU and initiated on sepsis protocol as well as pneumonia protocol. Cardiology team consulted in ED. Patient is lethargic with diminished cognition but has a positive gag reflex and is able to protect her airway without difficulty. No prior admission for review. No medication listed at time of admission for reconciliation. Advanced care planning conducted in ED. 03/05/22: Patient seen and examined, Neurology to evaluate, ?Concern about , she did not answer question referring to Last Menstrual cycle. Will hold off on imaging studies unless otherwise advised by Neurology. Oxygen saturation improved, imaging studies with some concern for aspiration. Will obtain ID consult, rule out COVID19, LFT improving some. Will provide more counselling on substance abuse when more awake. Also discussed with cardiology, will start patient on cardizem 120mg PO daily (1) Sepsis Current Visit: Yes Status: Acute Qualifiers: Severe sepsis acute organ dysfunction type: acute respiratory failure Plan to address problem: Sepsis protocol: Chest x-ray, CBC, CMP, supplemental oxygen, pulse oximetry, IV antibiotic therapy, IV fluid resuscitation therapy, maintain mean arterial pressure greater than or equal to 65, serial lactic acid level. IV pressor support as clinically indicated, blood culture. (2) Acute hypoxemic respiratory failure Current Visit: Yes Status: Acute Plan to address problem: Chest x-ray, supplemental oxygen, pulse oximetry, nebulizer therapy, D-dimer. VQ scan ordered and is pending at time of admission. CT chest without contrast ordered and pending at time of admission. Noninvasive positive pressure ve ntilation as clinically indicated. (3) Aspiration pneumonia Current Visit: Yes Status: Acute Plan to address problem: Pneumonia protocol: Chest x-ray, CBC, CMP, supplemental oxygen, pulse oximetry, nebulizer therapy, IV antibiotic therapy, blood culture., Aspiration precautions. (4) Toxic metabolic encephalopathy Current Visit: Yes Status: Acute Plan to address problem: Neuro check, CT head, seizure precaution, aspiration precautions, fall precautions, treat sepsis. (5) Acute kidney injury (ANTONINO) with acute tubular necrosis (ATN) Current Visit: Yes Status: Acute Plan to address problem: IV fluid resuscitation therapy, BMP, repeat BMP in a.m. to monitor serum creatinine as well as GFR. Monitor urine output every shift. Monitor fluid balance. (6) Nicotine dependence Current Visit: Yes Status: Acute Qualifiers: Nicotine product type: cigarettes Plan to address problem: Smoking cessation counseling, supportive care, behavior change counseling, +15 minutes. (7) Alcohol dependence Current Visit: Yes Status: Acute Plan to address problem: CIWA protocol, thiamine, folic acid, multivitamin daily. Banana bag (8) Cocaine dependence Current Visit: Yes Status: Acute Qualifiers: Complication of substance-induced condition: with delirium Plan to address problem: Supportive care, continue medical management. (9) Acidosis Current Visit: Yes Status: Acute (10) Elevated liver function tests Current Visit: Yes Status: Acute Plan to address problem: Hepatitis panel, supportive care. Suspected secondary to alcohol dependence. Outpatient GI follow-up. (11) Atrial fibrillation Current Visit: Yes Status: Acute Qualifiers: Atrial fibrillation type: unspecified Qualified Code(s): I48.91 - Unspecified atrial fibrillation Plan to address problem: Suspected new onset atrial fibrillation, urine drug screen, echocardiogram, thyroid panel, magnesium level, cardiology team consulted. (12) DVT prophylaxis Current Visit: Yes Status: Acute Plan to address problem: SCD to bilateral lower extremities while in bed (13) Advance care planning Current Visit: Yes Status: Acute Plan to address problem: Disease education conducted, care plan discussed, diagnoses discussed, prognosis discussed, patient is full code. Patient knowledges understanding and agreement with care plan, +30 minutes. History Interval history: Patient seen and examined, still a bit lethargic, but responsive and moving all extremities Hospitalist Physical - Physical exam Narrative exam: VITAL SIGNS: Reviewed. GENERAL: The patient appears normally developed, a bit drowsy Vital signs as documented. HEAD: No signs of head trauma. EYES: Pupils are equal. Extraocular motions intact. EARS: Hearing grossly intact. MOUTH: Oropharynx is normal. NECK: No adenopathy, no JVD. CHEST: Chest with clear breath sounds bilaterally. No wheezes, rales, or rhonchi. CARDIAC: Regular rate and rhythm. S1 and S2, without murmurs, gallops, or rubs. VASCULAR: No Edema. Peripheral pulses normal and equal in all extremities. ABDOMEN: Soft, non tender and non distended. No rebound or guarding, and no masses palpated. Bowel Sounds normal. MUSCULOSKELETAL: Good range of motion of all major joints. Extremities without clubbing, cyanosis or edema. NEUROLOGIC EXAM: awake although somnolent and oriented x 3 No focal sensory or strength deficits. Speech normal. Follows commands. PSYCHIATRIC: Mood normal. SKIN: detail exam as documented in skin assessment - Constitutional Vitals: Temp Pulse Resp BP Pulse Ox 99.6 F 88 19 147/96 100 03/05/22 10:11 03/05/22 09:00 03/05/22 09:00 03/05/22 09:00 03/05/22 09:00 General appearance: Present: mild distress Results - Labs CBC & Chem 7: 03/05/22 07:46 03/05/22 07:46 Labs: Laboratory Last Values WBC 14.5 K/mm3 (4.5-11.0) H 03/05/22 07:46 RBC 3.72 M/mm3 (3.65-5.03) 03/05/22 07:46 Hgb 10.0 gm/dl (10.1-14.3) L 03/05/22 07:46 Hct 31.5 % (30.3-42.9) D 03/05/22 07:46 MCV 85 fl (79-97) 03/05/22 07:46 MCH 27 pg (28-32) L 03/05/22 07:46 MCHC 32 % (30-34) 03/05/22 07:46 RDW 16.6 % (13.2-15.2) H 03/05/22 07:46 Plt Count 315 K/mm3 (140-440) 03/05/22 07:46 Lymph % (Auto) 8.8 % (13.4-35.0) L 03/05/22 07:46 Boyd % (Auto) 3.1 % (0.0-7.3) 03/05/22 07:46 Eos % (Auto) 0.0 % (0.0-4.3) 03/05/22 07:46 Baso % (Auto) 0.1 % (0.0-1.8) 03/05/22 07:46 Lymph # (Auto) 1.3 K/mm3 (1.2-5.4) 03/05/22 07:46 Boyd # (Auto) 0.4 K/mm3 (0.0-0.8) 03/05/22 07:46 Eos # (Auto) 0.0 K/mm3 (0.0-0.4) 03/05/22 07:46 Baso # (Auto) 0.0 K/mm3 (0.0-0.1) 03/05/22 07:46 Add Manual Diff Complete 03/04/22 12:20 Total Counted 100 03/04/22 12:20 Seg Neutrophils % 88.0 % (40.0-70.0) H 03/05/22 07:46 Seg Neuts % (Manual) 78.0 % (40.0-70.0) H 03/04/22 12:20 Band Neutrophils % 7.0 % 03/04/22 12:20 Lymphocytes % (Manual) 11.0 % (13.4-35.0) L 03/04/22 12:20 Reactive Lymphs % (Man) 0 % 03/04/22 12:20 Monocytes % (Manual) 3.0 % (0.0-7.3) 03/04/22 12:20 Eosinophils % (Manual) 0 % (0.0-4.3) 03/04/22 12:20 Basophils % (Manual) 0 % (0.0-1.8) 03/04/22 12:20 Metamyelocytes % 1.0 % 03/04/22 12:20 Myelocytes % 0 % 03/04/22 12:20 Promyelocytes % 0 % 03/04/22 12:20 Blast Cells % 0 % 03/04/22 12:20 Nucleated RBC % Not Reportable 03/04/22 12:20 Seg Neutrophils # 12.8 K/mm3 (1.8-7.7) H 03/05/22 07:46 Seg Neutrophils # Man 10.2 K/mm3 (1.8-7.7) H 03/04/22 12:20 Band Neutrophils # 0.9 K/mm3 03/04/22 12:20 Lymphocytes # (Manual) 1.4 K/mm3 (1.2-5.4) 03/04/22 12:20 Abs React Lymphs (Man) 0.0 K/mm3 03/04/22 12:20 Monocytes # (Manual) 0.4 K/mm3 (0.0-0.8) 03/04/22 12:20 Eosinophils # (Manual) 0.0 K/mm3 (0.0-0.4) 03/04/22 12:20 Basophils # (Manual) 0.0 K/mm3 (0.0-0.1) 03/04/22 12:20 Metamyelocytes # 0.1 K/mm3 03/04/22 12:20 Myelocytes # 0.0 K/mm3 03/04/22 12:20 Promyelocytes # 0.0 K/mm3 03/04/22 12:20 Blast Cells # 0.0 K/mm3 03/04/22 12:20 WBC Morphology Not Reportable 03/04/22 12:20 Hypersegmented Neuts Not Reportable 03/04/22 12:20 Hyposegmented Neuts Not Reportable 03/04/22 12:20 Hypogranular Neuts Not Reportable 03/04/22 12:20 Smudge Cells Not Reportable 03/04/22 12:20 Toxic Granulation Not Reportable 03/04/22 12:20 Toxic Vacuolation Not Reportable 03/04/22 12:20 Dohle Bodies Not Reportable 03/04/22 12:20 Pelger-Huet Anomaly Not Reportable 03/04/22 12:20 Kateryna Rods Not Reportable 03/04/22 12:20 Platelet Estimate Consistent w auto 03/04/22 12:20 Clumped Platelets Not Reportable 03/04/22 12:20 Plt Clumps, EDTA Not Reportable 03/04/22 12:20 Large Platelets Not Reportable 03/04/22 12:20 Giant Platelets Not Reportable 03/04/22 12:20 Platelet Satelliting Not Reportable 03/04/22 12:20 Plt Morphology Comment Not Reportable 03/04/22 12:20 RBC Morphology Not Reportable 03/04/22 12:20 Dimorphic RBCs Not Reportable 03/04/22 12:20 Polychromasia Not Reportable 03/04/22 12:20 Hypochromasia Not Reportable 03/04/22 12:20 Poikilocytosis Not Reportable 03/04/22 12:20 Anisocytosis 1+ 03/04/22 12:20 Microcytosis Not Reportable 03/04/22 12:20 Macrocytosis Not Reportable 03/04/22 12:20 Spherocytes Not Reportable 03/04/22 12:20 Pappenheimer Bodies Not Reportable 03/04/22 12:20 Sickle Cells Not Reportable 03/04/22 12:20 Target Cells Not Reportable 03/04/22 12:20 Tear Drop Cells Not Reportable 03/04/22 12:20 Ovalocytes Not Reportable 03/04/22 12:20 Helmet Cells Not Reportable 03/04/22 12:20 [place]line[place] Bodies Not Reportable 03/04/22 12:20 [place] Rings Not Reportable 03/04/22 12:20 [place] Cells Not Reportable 03/04/22 12:20 Bite Cells Not Reportable 03/04/22 12:20 Crenated Cell Not Reportable 03/04/22 12:20 Elliptocytes Not Reportable 03/04/22 12:20 Acanthocytes (Spur) Not Reportable 03/04/22 12:20 Rouleaux Not Reportable 03/04/22 12:20 Hemoglobin C Crystals Not Reportable 03/04/22 12:20 Schistocytes Not Reportable 03/04/22 12:20 Malaria parasites Not Reportable 03/04/22 12:20 Chucho Bodies Not Reportable 03/04/22 12:20 Hem Pathologist Commnt No 03/04/22 12:20 PT 15.7 Sec. (12.2-14.9) H 03/04/22 12:20 INR 1.12 (0.87-1.13) 03/04/22 12:20 D-Dimer 3882.77 ng/mlDDU (0-234) H 03/04/22 12:20 ABG pH 7.232 pH Units (7.350-7.450) L 03/04/22 20:47 ABG pCO2 44.0 mm Hg 03/04/22 20:47 ABG pO2 50.1 mm Hg (80.0-90.0) L 03/04/22 20:47 ABG HCO3 18.1 mmol/L (20.0-26.0) L 03/04/22 20:47 ABG O2 Saturation 81.8 % (95.0-99.0) L 03/04/22 20:47 ABG O2 Content 12.5 (0.0-44) 03/04/22 20:47 ABG Base Excess -9.0 mmol/L (-2.0-3.0) L 03/04/22 20:47 ABG Hemoglobin 11.1 gm/dl (12.0-16.0) L 03/04/22 20:47 ABG Carboxyhemoglobin 1.6 % (0.0-5.0) 03/04/22 20:47 ABG Methemoglobin 0.8 % (0.0-1.5) 03/04/22 20:47 Oxyhemoglobin 79.8 % (95.0-99.0) L 03/04/22 20:47 FiO2 21 % 03/04/22 20:47 Sodium 137 mmol/L (137-145) 03/05/22 07:46 Potassium 4.3 mmol/L (3.6-5.0) 03/05/22 07:46 Chloride 107.0 mmol/L (98-107) 03/05/22 07:46 Carbon Dioxide 20 mmol/L (22-30) L 03/05/22 07:46 Anion Gap 14 mmol/L 03/05/22 07:46 BUN 14 mg/dL (7-17) 03/05/22 07:46 Creatinine 1.3 mg/dL (0.6-1.2) H 03/05/22 07:46 Estimated GFR 59 ml/min 03/05/22 07:46 BUN/Creatinine Ratio 11 % 03/05/22 07:46 Glucose 129 mg/dL (65-100) H 03/05/22 07:46 Lactic Acid 1.40 mmol/L (0.7-2.0) 03/05/22 07:46 Calcium 8.3 mg/dL (8.4-10.2) L 03/05/22 07:46 Magnesium 2.00 mg/dL (1.7-2.3) 03/04/22 18:43 Ferritin 290.6 ng/mL (10.0-200.0) H 03/05/22 09:33 Total Bilirubin 0.20 mg/dL (0.1-1.2) 03/05/22 07:46 Direct Bilirubin < 0.2 mg/dL (0-0.2) 03/04/22 18:43 Indirect Bilirubin 0.1 mg/dL 03/04/22 18:43 AST 144 units/L (5-40) H 03/05/22 07:46 ALT 249 units/L (7-56) H 03/05/22 07:46 Alkaline Phosphatase 143 units/L (35-129) H 03/05/22 07:46 Lactate Dehydrogenase 627 units/L (91-180) H 03/05/22 07:46 Total Creatine Kinase 112 units/L (30-135) 03/04/22 12:20 C-Reactive Protein 0.40 mg/dL (0.00-1.30) 03/05/22 07:46 Total Protein 6.5 g/dL (6.3-8.2) 03/05/22 07:46 Albumin 3.4 g/dL (3.9-5) L 03/05/22 07:46 Albumin/Globulin Ratio 1.1 % 03/05/22 07:46 TSH 0.928 mlU/mL (0.270-4.200) 03/04/22 18:43 Free T4 1.10 ng/dL (0.76-1.46) 03/04/22 18:43 HCG, Quant < 2 mIU/mL (0-4) 03/04/22 12:20 Urine Color Straw (Yellow) 03/04/22 12:31 Urine Turbidity Clear (Clear) 03/04/22 12:31 Urine pH 7.0 (5.0-7.0) 03/04/22 12:31 Ur Specific [place] 1.005 (1.003-1.030) 03/04/22 12:31 Urine Protein 100 mg/dl mg/dL (Negative) 03/04/22 12:31 Urine Glucose (UA) Neg mg/dL (Negative) 03/04/22 12:31 Urine Ketones Neg mg/dL (Negative) 03/04/22 12:31 Urine Blood Sm (Negative) 03/04/22 12:31 Urine Nitrite Neg (Negative) 03/04/22 12:31 Urine Bilirubin Neg (Negative) 03/04/22 12:31 Urine Urobilinogen < 2.0 mg/dL (<2.0) 03/04/22 12:31 Ur Leukocyte Esterase Neg (Negative) 03/04/22 12:31 Urine WBC (Auto) 4.0 /HPF (0.0-6.0) 03/04/22 12:31 Urine RBC (Auto) 3.0 /HPF (0.0-6.0) 03/04/22 12:31 U Epithel Cells (Auto) 2.0 /HPF (0-13.0) 03/04/22 12:31 Urine Bacteria (Auto) 1+ /HPF (Negative) 03/04/22 12:31 Urine Mucus Few /HPF 03/04/22 12:31 Urine HCG, Qual Positive (Negative) A 03/04/22 12:31 Salicylates < 0.3 mg/dL (2.8-20.0) L 03/04/22 12:20 Urine Opiates Screen Negative 03/04/22 12:31 Urine Methadone Screen Negative 03/04/22 12:31 Acetaminophen 5.0 ug/mL (10.0-30.0) L 03/04/22 12:20 Ur Barbiturates Screen Negative 03/04/22 12:31 Ur Phencyclidine Scrn Negative 03/04/22 12:31 Ur Amphetamines Screen Negative 03/04/22 12:31 U Benzodiazepines Scrn Negative 03/04/22 12:31 Urine Cocaine Screen Positive 03/04/22 12:31 U Marijuana (THC) Screen Positive 03/04/22 12:31 Drugs of Abuse Note Disclamer 03/04/22 12:31 Plasma/Serum Alcohol < 0.01 % (0-0.07) 03/04/22 12:20 Blood Type O POSITIVE 03/04/22 16:40 Antibody Screen Negative 03/04/22 16:40 Microbiology: Microbiology 03/04/22 16:37 Peripheral/Venous Blood Culture - Preliminary Culture in Progress 03/04/22 16:37 Peripheral/Venous Blood Culture - Preliminary Culture in Progress Leahy/IV: Voiding Method Toilet Active Medications - Current Medications Current Medications: Generic Name Dose Route Start Last Admin Trade Name Freq PRN Reason Stop Dose Admin Acetaminophen 650 mg 03/04/22 18:03 Acetaminophen 325 Mg Tab PO Q4H PRN Pain MILD(1-3)/Fever >100.5/[place] Albuterol 2.5 mg 03/04/22 18:03 Albuterol 2.5 Mg/3 Ml Nebu IH Q4HRT PRN Shortness Of Breath Diltiazem HCl 120 mg 03/05/22 11:00 Diltiazem Cd 120 Mg Cap PO QDAY [facility] Folic Acid 1 mg 03/05/22 10:00 03/05/22 09:49 Folic Acid 1 Mg Tab PO Not Given QDAY [facility] Hydromorphone HCl 0.25 mg 03/04/22 17:00 Hydromorphone 1 Mg/1 Ml Inj IV Q8H PRN Pain, Moderate (4-6) Hydromorphone HCl 0.5 mg 03/04/22 17:00 Hydromorphone 1 Mg/1 Ml Inj IV Q12H PRN Pain , Severe (7-10) Sodium Chloride 1,000 mls @ 130 mls/hr 03/04/22 17:00 Nacl 0.9% 1000 Ml IV DIRECT [facility] Vancomycin HCl 1 gm in 250 mls @ 166.667 mls/hr 03/05/22 23:00 Vancomycin/Ns 1 Gm/250 Ml IV Q24H [facility] Ceftriaxone Sodium 1 gm in 50 mls @ 100 mls/hr 03/05/22 09:00 Rocephin/Ns 1 Gm/50 Ml IV Q24H [facility] Protocol Lorazepam 2 mg 03/04/22 18:28 Lorazepam 2 Mg/Ml Vial IV Q1HR PRN CIWA-Ar 8-15 Ondansetron HCl 4 mg 03/04/22 18:03 Ondansetron 4 Mg/2 Ml Inj IV Q8H PRN Nausea And Vomiting Oxycodone/Acetaminophen 1 tab 03/04/22 18:03 03/05/22 07:12 Oxycodone /Acetaminophen 5-325mg Tab PO 1 tab Q16H PRN Administration Pain, Moderate (4-6) Sodium Chloride 10 ml 03/04/22 22:00 03/05/22 09:50 Sodium Chloride 0.9% 10 Ml Flush Syringe IV 10 ml BID [facility]ATT Administration Sodium Chloride 10 ml 03/04/22 18:03 Sodium Chloride 0.9% 10 Ml Flush Syringe IV PRN PRN LINE FLUSH
[2022-03-05] MEDS ORDERED: dilTIAZem CD 120 MG CAP PO SCH ×2 (11:00→15:00)
--- NOTE | 2022-03-05 11:24 | Consultation ---
History of Present Illness Consult date: 03/05/22 Requesting physician: ALAN DONALD Consult reason: atrial fibrillation History of present illness: 31-year-old female was brought into the hospital for altered mental status and hypoxemia was found to have cocaine positive history of nicotine and EtOH abuse. Was brought by her daughters. In speaking with patient's mother. Patient has no history of atrial fibrillation. Patient received 2 doses of Cardizem. And patient is maintaining sinus rhythm. Patient's duration of atrial fibrillation was less than 12 hours. Patient on exam today is lethargic answers patient's names. History was obtained by the chart and family Past History Past Medical History: hypertension, other (See HPI) Past Surgical History: Social history: single, lives with family, smoking, alcohol abuse. denies: prescription drug abuse, IV drug use Family history: diabetes, hypertension Medications and Allergies Allergies Allergy/AdvReac Type Severity Reaction Status Date / Time No Known Allergies Allergy Unverified 03/04/22 12:40 Active Meds: Active Medications Acetaminophen (Acetaminophen 325 Mg Tab) 650 mg PO Q4H PRN PRN Reason: Pain MILD(1-3)/Fever >100.5/[place] Albuterol (Albuterol 2.5 Mg/3 Ml Nebu) 2.5 mg IH Q4HRT PRN PRN Reason: Shortness Of Breath Diltiazem HCl (Diltiazem Cd 120 Mg Cap) 120 mg PO QDAY [facility] Folic Acid (Folic Acid 1 Mg Tab) 1 mg PO QDAY [facility] Last Admin: 03/05/22 09:49 Dose: Not Given Hydromorphone HCl (Hydromorphone 1 Mg/1 Ml Inj) 0.25 mg IV Q8H PRN PRN Reason: Pain, Moderate (4-6) Hydromorphone HCl (Hydromorphone 1 Mg/1 Ml Inj) 0.5 mg IV Q12H PRN PRN Reason: Pain , Severe (7-10) Sodium Chloride (Nacl 0.9% 1000 Ml) 1,000 mls @ 130 mls/hr IV DIRECT [facility] Vancomycin HCl (Vancomycin/Ns 1 Gm/250 Ml) 1 gm in 250 mls @ 166.667 mls/hr IV Q24H [facility] Ceftriaxone Sodium (Rocephin/Ns 1 Gm/50 Ml) 1 gm in 50 mls @ 100 mls/hr IV Q24H [facility]; Protocol Lorazepam (Lorazepam 2 Mg/Ml Vial) 2 mg IV Q1HR PRN PRN Reason: CIWA-Ar 8-15 Ondansetron HCl (Ondansetron 4 Mg/2 Ml Inj) 4 mg IV Q8H PRN PRN Reason: Nausea And Vomiting Oxycodone/Acetaminophen (Oxycodone /Acetaminophen 5-325mg Tab) 1 tab PO Q16H PRN PRN Reason: Pain, Moderate (4-6) Last Admin: 03/05/22 07:12 Dose: 1 tab Sodium Chloride (Sodium Chloride 0.9% 10 Ml Flush Syringe) 10 ml IV BID [facility]YATT Last Admin: 03/05/22 09:50 Dose: 10 ml Sodium Chloride (Sodium Chloride 0.9% 10 Ml Flush Syringe) 10 ml IV PRN PRN PRN Reason: LINE FLUSH Review of Systems ROS unobtainable: due to mental status Physical Examination Vital Signs Pulse 149 H 03/04/22 12:31 General appearance: other HEENT: Positive: PERRL, EOMI Neck: Positive: neck supple Cardiac: Positive: Reg Rate and Rhythm Lungs: Positive: clear to auscultation Abdomen: Positive: Soft Female genitourinary: deferred Extremities: Present: normal. Absent: edema Results 03/05/22 07:46 03/05/22 07:46 Cardiac Enzymes 03/04/22 03/04/22 03/05/22 Range/Units 12:20 18:43 07:46 AST 206 H 376 H 144 H (5-40) units/L Lactate Dehydrogenase (91-180) units/L 03/05/22 Range/Units 07:46 AST (5-40) units/L Lactate Dehydrogenase 627 H (91-180) units/L Coagulation 03/04/22 Range/Units 12:20 PT 15.7 H (12.2-14.9) Sec. INR 1.12 (0.87-1.13) CBC 03/04/22 03/05/22 Range/Units 12:20 07:46 WBC 13.1 H 14.5 H (4.5-11.0) K/mm3 RBC 4.39 3.72 (3.65-5.03) M/mm3 Hgb 12.0 10.0 L (10.1-14.3) gm/dl Hct 38.2 31.5 D (30.3-42.9) % Plt Count 447 H 315 (140-440) K/mm3 Lymph # (Auto) 1.3 (1.2-5.4) K/mm3 Lee # (Auto) 0.4 (0.0-0.8) K/mm3 Eos # (Auto) 0.0 (0.0-0.4) K/mm3 Baso # (Auto) 0.0 (0.0-0.1) K/mm3 Comprehensive Metabolic Panel 03/04/22 03/04/22 03/05/22 Range/Units 12:20 18:43 07:46 Sodium 139 137 (137-145) mmol/L Potassium 5.0 4.3 (3.6-5.0) mmol/L Chloride 99.6 107.0 (98-107) mmol/L Carbon Dioxide 15 L 20 L (22-30) mmol/L BUN 18 H 14 (7-17) mg/dL Creatinine 2.1 H 1.3 H (0.6-1.2) mg/dL Glucose 81 129 H (65-100) mg/dL Calcium 9.2 8.3 L (8.4-10.2) mg/dL Direct Bilirubin < 0.2 (0-0.2) mg/dL Indirect Bilirubin 0.1 mg/dL AST 206 H 376 H 144 H (5-40) units/L ALT 197 H 344 H 249 H (7-56) units/L Alkaline Phosphatase 140 H 161 H 143 H (35-129) units/L Total Protein 8.5 H 7.1 6.5 (6.3-8.2) g/dL Albumin 4.5 4.0 3.4 L (3.9-5) g/dL - Imaging and Cardiology Echo: pending EKG interpretations - Telemetry EKG Rhythm: Atrial Fibrillation (Atrial fibrillation nonspecific ST-T) Assessment and Plan 31-year-old female with history of cocaine abuse tobacco abuse had altered mental status with hypoxemia. Plan by neurology. Had a short duration of atrial fibrillation. We will continue low-dose Cardizem. As patient has a history of hypertension as per the mother was taking Norvasc. In view of short duration will hold off oral anticoagulation. Check echocardiogram. - Patient Problems (1) Acute hypoxemic respiratory failure Current Visit: Yes Status: Acute (2) Acute kidney injury (ANTONINO) with acute tubular necrosis (ATN) Current Visit: Yes Status: Acute (3) Alcohol dependence Current Visit: Yes Status: Acute (4) Altered mental status Current Visit: Yes Status: Acute (5) Atrial fibrillation Current Visit: Yes Status: Acute Qualifiers: Atrial fibrillation type: unspecified Qualified Code(s): I48.91 - Unspecified atrial fibrillation (6) Cocaine abuse Current Visit: Yes Status: Acute
[2022-03-05] MEDS: cefTRIAXone/NS 1 GM/50 ML 1 GM/50 ML BAG IV SCH (12:09)
[2022-03-05] MEDS ORDERED: dilTIAZem CD 120 MG CAP PO STA (14:12)
[2022-03-05] MEDS: hydrALAZINE 20 MG/1 ML INJ IV PRN (14:37)
[2022-03-05] MEDS: hydrALAZINE 25 MG TAB PO SCH ×2 (16:12→21:49)
[2022-03-05] MEDS: ACETAMINOPHEN 325 MG TAB PO PRN (16:34)
[2022-03-05] MEDS ORDERED: niCARdipine 50 MG in SODIUM CHLORIDE 0.9% 250ML 230 ML IV SCH (17:30)
[2022-03-06] MEDS: VANCOMYCIN/NS 1 GM/250 ML 1 GM/250 ML BAG IV SCH ×2 (00:22→23:31)
[2022-03-06] MEDS: hydrALAZINE 20 MG/1 ML INJ IV PRN ×2 (01:53→08:37)
[2022-03-06 05:43] LABS: Alanine Aminotransferase 205 units/L (7-56); Albumin 3.6 g/dL (3.9-5); BUN/Creatinine Ratio 6; Blood Urea Nitrogen 7 mg/dL (7-17); Hemolysis Index 8
[2022-03-06 05:49] LABS: Hematocrit 34.9 % (30.3-42.9); Hemoglobin 11.2 gm/dl (10.1-14.3); Mean Corpuscular HGB Conc 32 % (30-34); Mean Corpuscular Volume 84 fl (79-97); Platelet Count 328 K/mm3 (140-440); Red Blood Count 4.17 M/mm3 (3.65-5.03); Red Cell Distribution Width 16.5 % (13.2-15.2)
[2022-03-06] MEDS: ACETAMINOPHEN 325 MG TAB PO PRN (08:32)
[2022-03-06] MEDS: hydrALAZINE 25 MG TAB PO SCH (09:11)
[2022-03-06] MEDS: dilTIAZem CD 240 MG CAP PO SCH (09:13)
[2022-03-06] MEDS: cefTRIAXone/NS 1 GM/50 ML 1 GM/50 ML BAG IV SCH (09:14)
[2022-03-06] MEDS: FOLIC ACID 1 MG TAB PO SCH (09:14)
--- NOTE | 2022-03-06 11:27 | Consultation ---
History of Present Illness - Reason for Consult Consult date: 03/06/22 pneumonia Requesting physician: ALAN DONALD - History of Present Illness The patient is a 31-year-old female with hypertension, substance abuse was admitted to the hospital with unresponsive/confused state. Upon evaluation, she was noted to be hypoxic with chest x-ray showing left-sided pneumonia. She was started on empiric antibiotics. Infectious diseases has been consulted for p neumonia. At the time of my evaluation, she is currently in ICU but is feeling much better and has been weaned to room air. She denies any cough or shortness of breath. Denies any chest pain, nausea or vomiting. Does admit to smoking marijuana, she has noted cocaine in the past. Urinary tox screen was positive for cocaine and marijuana. Denies IVDU. She feels almost back to her baseline. Has remained afebrile throughout hospitalization. Review of Systems: General: no fevers,chills or rigors HEENT: no new visual disturbance Respiratory: No cough, sputum, hemoptysis or shortness of breath Cardiovascular: No chest pain, syncope Gastrointestinal: No nausea, vomiting or diarrhea Genitourinary: No dysuria or hematuria Musculoskeletal: No new or worsening neck pain or back pain Neurologic: No headaches, seizures Hematologic: No easy bruising or bleeding Endocrine: No night sweats or acute weight loss Skin: negative for rash, jaundice Psychiatric: No suicidal or homicidal ideation Past History Past Medical History: hypertension, other (See HPI) Past Surgical History: Social history: single, lives with family, smoking, alcohol abuse. denies: pres cription drug abuse, IV drug use Family history: diabetes, hypertension Medications and Allergies Allergies Allergy/AdvReac Type Severity Reaction Status Date / Time No Known Allergies Allergy Unverified 03/04/22 12:40 Active Meds: Active Medications Acetaminophen (Acetaminophen 325 Mg Tab) 650 mg PO Q4H PRN PRN Reason: Pain MILD(1-3)/Fever >100.5/[place] Last Admin: 03/06/22 08:32 Dose: 650 mg Albuterol (Albuterol 2.5 Mg/3 Ml Nebu) 2.5 mg IH Q4HRT PRN PRN Reason: Shortness Of Breath Diltiazem HCl (Diltiazem Cd 240 Mg Cap) 240 mg PO QDAY [place] Last Admin: 03/06/22 09:13 Dose: 240 mg Folic Acid (Folic Acid 1 Mg Tab) 1 mg PO QDAY [facility] Last Admin: 03/06/22 09:14 Dose: 1 mg Hydralazine HCl (Hydralazine 20 Mg/1 Ml Inj) 10 mg IV Q6HR PRN PRN Reason: Blood Pressure Last Admin: 03/06/22 08:37 Dose: 10 mg Hydralazine HCl (Hydralazine 100 Mg Tab) 100 mg PO BID [place] Hydromorphone HCl (Hydromorphone 1 Mg/1 Ml Inj) 0.25 mg IV Q8H PRN PRN Reason: Pain, Moderate (4-6) Hydromorphone HCl (Hydromorphone 1 Mg/1 Ml Inj) 0.5 mg IV Q12H PRN PRN Reason: Pain , Severe (7-10) Vancomycin HCl (Vancomycin/Ns 1 Gm/250 Ml) 1 gm in 250 mls @ 166.667 mls/hr IV Q24H [facility] Last Admin: 03/06/22 00:22 Dose: 166.667 mls/hr Ceftriaxone Sodium (Rocephin/Ns 1 Gm/50 Ml) 1 gm in 50 mls @ 100 mls/hr IV Q24H [facility]; Protocol Last Admin: 03/06/22 09:14 Dose: 100 mls/hr Nicardipine HCl 50 mg/ Sodium (Chloride) 250 mls @ 25 mls/hr IV TITR [facility]; Protocol Last Titration: 03/05/22 21:52 Dose: 0 mg/hr, 0 mls/hr Lorazepam (Lorazepam 2 Mg/Ml Vial) 2 mg IV Q1HR PRN PRN Reason: CIWA-Ar 8-15 Ondansetron HCl (Ondansetron 4 Mg/2 Ml Inj) 4 mg IV Q8H PRN PRN Reason: Nausea And Vomiting Oxycodone/Acetaminophen (Oxycodone /Acetaminophen 5-325mg Tab) 1 tab PO Q16H PRN PRN Reason: Pain, Moderate (4-6) Last Admin: 03/05/22 07:12 Dose: 1 tab Sodium Chloride (Sodium Chloride 0.9% 10 Ml Flush Syringe) 10 ml IV BID [facility] Last Admin: 03/06/22 09:11 Dose: 10 ml Sodium Chloride (Sodium Chloride 0.9% 10 Ml Flush Syringe) 10 ml IV PRN PRN PRN Reason: LINE FLUSH Physical Examination - Physical Exam Narrative exam: Physical Exam: Constitutional: Alert, cooperative. No acute distress Head, Ears, Nose: Normocephalic, atraumatic. External ears, nose normal Eyes: Conjunctivae/corneas clear. No icterus. No ptosis. Neck: Supple, no meningeal signs Cardiovascular: S1, S2 + Respiratory: Good air entry, clear to auscultation bilaterally GI: Soft, non-tender; bowel sounds normal. No peritoneal signs Musculoskeletal: No pedal edema, no cyanosis. Skin: No rash or abscess Hem/Lymphatic: No palpable cervical or supraclavicular nodes. No lymphangitis Psych: Mood ok. Affect normal Neurological: Awake, alert, oriented. No gross abnormality - Constitutional Vitals: Vital Signs Temp Pulse Resp BP Pulse Ox 98.8 F 97 H 25 H 152/98 96 03/06/22 07:27 03/06/22 09:13 03/06/22 09:00 03/06/22 09:13 03/06/22 09:00 Temperature -Last 24 Hours Temperature 98.8 F Temperature 99.5 F Temperature 99.7 F Temperature 99 F Temperature 99 F Temperature 98.9 F Results - Labs CBC & Chem 7: 03/06/22 04:07 03/06/22 04:07 Labs: Abnormal lab results 03/05/22 03/06/22 03/06/22 Range/Units 10:19 04:07 04:07 WBC 11.5 H (4.5-11.0) K/mm3 MCH 27 L (28-32) pg RDW 16.5 H (13.2-15.2) % D-Dimer 9294.58 H (0-234) ng/mlDDU Sodium 136 L (137-145) mmol/L Carbon Dioxide 19 L (22-30) mmol/L Glucose 108 H (65-100) mg/dL AST 52 H (5-40) units/L ALT 205 H (7-56) units/L Alkaline Phosphatase 165 H (35-129) units/L Albumin 3.6 L (3.9-5) g/dL - Imaging and Cardiology Chest x-ray: report reviewed, image reviewed (Left sided opacity) Assessment and Plan Cultures: 03/04/2022 blood culture: No growth A/P: 31-year-old female with hypertension, substance abuse was admitted to the hospital with unresponsive/confused state, now improving: #Left-sided pneumonia with acute respiratory failure: Improving. #ANTONINO: Resolved #Polysubstance abuse #Transaminitis Recs: -continue Ceftriaxone x 5 days, if discharged, switch to PO Ceftin 500 mg BID to complete the course -MRSA nasal PCR ordered, if negative, can discontinue vancomycin -monitor LFTs, if they remain elevated, consider RUQ US and Hepatitis panel Mukesh Byers MD, FACP, [facility] ([facility] O: [phone] F: [phone] C: [phone]
[2022-03-06] MEDS: cloNIDine 0.2 MG TAB PO SCH ×2 (11:42→22:30)
[2022-03-06] MEDS: hydrALAZINE 100 MG TAB PO SCH ×2 (11:45→22:16)
--- NOTE | 2022-03-06 14:11 | Electrocardiograph Report ---
[facility] Test Date: 2022-03-04 Test Time: 12:25:09 Pat Name: JUAN ANTONIO LONG Department: Room: A261 Gender: F Floral Decorator: ERWIN : 1990 Requested By: ELIUD CHOWDARY Order Number: [id number] Reading MD: Senthil Brown Measurements Intervals [place] Rate: 142 P: MD: QRS: -23 QRSD: 111 T: 58 QT: 325 QTc: 500 Interpretive Statements Atrial fibrillation with rapid ventricular response Probable left ventricular hypertrophy Prolonged QT interval No previous ECG available for comparison Electronically Signed On 03-06-2022 14:10:36 EDT by Senthil Brown
--- NOTE | 2022-03-06 15:46 | Progress Note ---
Assessment and Plan 31-year-old female was brought into the hospital 03/04/22 for AMS and hypoxemia was found to have cocaine positive history of nicotine and EtOH abuse. New Afib. Patient received 2 doses of Cardizem. patient is maintaining sinus rhythm. Patient's duration of atrial fibrillation was less than 12 hours. Assessment New onset atrial fibrillation-now resolved Acute hypoxemic respiratory failure Elevated LFTs Altered mental status -neurology following ANTONINO Alcohol dependence Cocaine Hypertension Cardiographics EKG: Atrial fibrillation- (Atrial fibrillation nonspecific ST-T) Echocardiogram 03/04/22: Left ventricle: The left ventricle systolic function is normal. The left ventricular ejection fraction is within the normal range. LVEF is 5055%. Right ventricle: Right ventricle systolic function is normal. Aortic valve: There is no aortic valvular stenosis. Mitral valve: There is no mitral valve regurg Tatian noted. Tricuspid valve: Trace tricuspid regurgitation. RSVP is 19 mmHg. Pulmonic valve: Trace pulmonic regurgitation Recommendations/plan: See echo report as above. No oral anticoagulation given short duration of A. fib. Continue low-dose Cardizem 240 mg p.o. daily. Continue clonidine and increase hydralazine to 100 mg PO twice daily for BP control. Patient remains sinus rhythm in the 80s today. Patient seen in conjunction with Dr. El who agrees with the assessment and management of this patient. - Patient Problems (1) Alcohol dependence Current Visit: Yes Status: Acute (2) Altered mental status Current Visit: Yes Status: Acute (3) Cocaine abuse Current Visit: Yes Status: Acute (4) Elevated liver function tests Current Visit: Yes Status: Acute (5) Nicotine dependence Current Visit: Yes Status: Acute Qualifiers: Nicotine product type: cigarettes (6) ANTONINO (acute kidney injury) Current Visit: Yes Status: Acute Subjective Date of service: 03/06/22 Principal diagnosis: AMS Interval history: Patient seen and examined today in the intensive care unit. Patient appears sleepy and groggy. She is responsive to command. No apparent distress Telemetry: Sinus rhythm 80s to 90s. Intake & Output 03/05/22 03/06/22 03/06/22 23:59 07:59 15:59 Intake Total 346.25 240 Output Total 1500 900 400 Balance -1153.75 -900 -160 Objective Vital Signs Temp Pulse Pulse Resp BP Pulse Ox 03/06/22 15:00 84 22 109/54 97 03/06/22 14:30 83 20 112/58 97 03/06/22 14:00 85 20 101/56 98 03/06/22 13:30 78 15 113/48 99 03/06/22 13:05 98.9 F 03/06/22 13:00 81 19 107/57 97 03/06/22 12:30 81 24 106/62 94 03/06/22 12:00 78 79 21 126/89 97 03/06/22 11:42 86 163/91 03/06/22 11:39 98.6 F 03/06/22 11:30 81 22 163/91 97 03/06/22 11:00 91 H 22 144/86 96 03/06/22 10:30 94 H 24 146/85 96 03/06/22 10:00 94 H 25 H 140/92 97 03/06/22 09:30 97 H 26 H 149/83 96 03/06/22 09:13 97 H 152/98 03/06/22 09:11 100 H 152/98 03/06/22 09:00 95 H 25 H 152/98 96 03/06/22 08:37 85 161/92 03/06/22 08:32 25 H 03/06/22 08:30 86 27 H 161/92 97 03/06/22 08:00 91 H 26 H 161/92 97 03/06/22 07:30 88 26 H 155/96 97 03/06/22 07:27 98.8 F 88 88 26 H 97 03/06/22 07:00 95 H 18 149/94 98 03/06/22 06:30 85 23 147/91 99 03/06/22 06:00 86 21 147/91 99 03/06/22 05:30 91 H 27 H 154/97 100 03/06/22 05:00 88 28 H 154/97 98 03/06/22 04:30 98 H 29 H 164/104 99 03/06/22 04:00 91 H 87 24 162/97 100 03/06/22 03:30 91 H 21 160/94 100 03/06/22 03:00 90 24 152/95 100 03/06/22 02:30 95 H 29 H 159/83 98 03/06/22 02:00 92 H 24 135/75 99 03/06/22 01:53 91 H 169/106 03/06/22 01:30 85 21 169/106 100 03/06/22 01:00 85 23 160/109 03/06/22 00:30 86 25 H 164/103 03/06/22 00:00 99.5 F 94 H 89 24 145/86 100 03/05/22 23:30 90 25 H 153/85 100 03/05/22 23:02 92 H 25 H 126/87 98 03/05/22 23:00 93 H 24 126/87 97 03/05/22 22:30 94 H 21 142/82 93 03/05/22 22:00 96 H 24 142/82 96 03/05/22 21:49 98 H 144/77 03/05/22 21:30 103 H 26 H 144/77 91 03/05/22 21:00 99 H 25 H 146/87 03/05/22 20:30 96 H 26 H 142/83 03/05/22 20:00 99.7 F H 98 H 110 H 24 142/85 100 03/05/22 19:30 113 H 21 141/80 93 03/05/22 19:00 92 H 20 139/83 93 03/05/22 18:30 93 H 20 158/89 94 03/05/22 18:00 90 23 161/104 96 03/05/22 17:30 104 H 23 98 03/05/22 17:13 98 H 27 H 100 03/05/22 17:00 97 H 22 193/122 03/05/22 16:30 89 27 H 180/119 95 03/05/22 16:22 99 F 03/05/22 16:12 97 H 182/119 03/05/22 16:00 99 F 91 H 28 H 182/119 98 - Physical Examination General: No Apparent Distress HEENT: Positive: EOMI, Normocephaly, Mucus Membranes Moist Neck: Positive: trachea midline Cardiac: Positive: Reg Rate and Rhythm, S1/S2 Lungs: Positive: Decreased Breath Sounds (Diminished anterior base) Neuro: Positive: Other (Patient sleepy and groggy this morning. Did answer questions appropriately) Abdomen: Positive: Soft, Active Bowel Sounds Skin: Negative: Rash Extremities: Present: normal, warm. Absent: edema - Labs and Meds Cardiac Enzymes 03/06/22 Range/Units 04:07 AST 52 H (5-40) units/L CBC 03/06/22 Range/Units 04:07 WBC 11.5 H (4.5-11.0) K/mm3 RBC 4.17 (3.65-5.03) M/mm3 Hgb 11.2 (10.1-14.3) gm/dl Hct 34.9 (30.3-42.9) % Plt Count 328 (140-440) K/mm3 Comprehensive Metabolic Panel 03/06/22 Range/Units 04:07 Sodium 136 L (137-145) mmol/L Potassium 3.9 (3.6-5.0) mmol/L Chloride 103.4 (98-107) mmol/L Carbon Dioxide 19 L (22-30) mmol/L BUN 7 (7-17) mg/dL Creatinine 1.1 (0.6-1.2) mg/dL Glucose 108 H (65-100) mg/dL Calcium 9.0 (8.4-10.2) mg/dL AST 52 H (5-40) units/L ALT 205 H (7-56) units/L Alkaline Phosphatase 165 H (35-129) units/L Total Protein 8.0 D (6.3-8.2) g/dL Albumin 3.6 L (3.9-5) g/dL - Imaging and Cardiology Echo: report reviewed - Telemetry EKG Rhythm: Sinus Rhythm
--- NOTE | 2022-03-06 16:02 | Progress Note ---
Assessment and Plan Assessment and plan: This is a 31-year-old female with HTN, EtOH and nicotine dependence admitted for sepsis, ANTONINO, aspiration pneumonia, acute respiratory failure and toxic metabolic encephalopathy Neuro: s/p toxic metabolic encephalopathy,h/o nicotine, EtOH and cocaine abuse -UDS positive for cocaine and marijuana -Patient is adamant she does not use cocaine and that her marijuana was laced with cocaine -Avoid delirium -Reorientation as needed -Maintain sleep-wake cycle -Consider psych consult for flat affect -Neurology consulted, patient recommendations Cardiac: s/p new onset atrial fibrillation (resolved), h/o HTN -Had a short duration of atrial fibrillation in the emergency department -Currently on Cardizem p.o. -Cardiology consulted, appreciate recommendations -Blood pressure monitoring per protocol -Antihypertensive regimen: Clonidine, hydralazine (titrate as needed) -Labetalol as needed -Echocardiogram shows normal bivalve function, LVEF 50 to 55%, RVSP 19 mmHg -CCM consulted, appreciate recommendations Respiratory: Acute hypoxic respiratory failure -Currently on nasal cannula -SOB much exercise. -SPO2 monitor per protocol -Pulmonary hygiene GI: Transaminitis, protein calorie malnutrition -24 hours -2903 mL -PPI -NTR consulted for tube feedings -BR: -Trend LFT : Slight hyponatremia, slight hypochloremia, acute kidney injury likely secondary to vasomotor nephropathy (resolved) -Strict intake and output -Renally dose medications -Avoid nephrotoxic medications -Daily weights -Trend BMP ID: Left-sided pneumonia -COVID-19 PCR -Infectious disease consulted, appreciate recommendation -Antibiotic therapy with ceftriaxone for 5 days and vancomycin (can discontinue vancomycin if MRSA PCR negative) -Per ID if discharged can switch to p.o. Ceftin 500 mg twice daily to complete course -MRSA PCR pending -f/u blood culture -Monitor WBC and temperature curve Endo: NAD -Avoid hypoglycemia Heme: Leukocytosis, elevated D-dimer, lactic acidosis (resolved) -Trend CBC -Transfuse hemoglobin less than 7 -Monitor for signs of bleeding -SCDs to BLE while in bed -VQ scan shows low probability of pulm embolism The high probability of a clinically significant, sudden or life threatening d eterioration of the [cardio] system(s) required my full and direct attention, intervention and personal management. The aggregate critical care time was [60] minutes. This time is in addition to time spent performing reported procedures but includes the following: [x] Data Review and interpretation [x] Patient assessment and monitoring of vital signs [x] Documentation [x] Medication orders and management Disposition Plan: Transfer to floor Total Time Spent with Patient (Minutes): 60 History Interval history: This is a 31-year-old female with HTN, EtOH and nicotine dependence who presented to the emergency department on 02/22 via EMS for altered mental status. As per daughters patient was found in her bed to be confused with saliva emanating from her mouth and they notified the grandmother who instructed them to call EMS. In the ED patient was found to have a pulse ox of 84% on room air consistent with acute hypoxic respiratory failure, CXR revealed pneumonia, lab work revealed acidosis, ANTONINO with ATN and new onset atrial fibrillation. Patient was admitted to the hospital service to [facility] initiated on sepsis and pneumonia protocol. Cardiology was consulted in the emergency department. Hospital course to date: 03/05/22: Patient seen and examined, Neurology to evaluate, ?Concern about , she did not answer question referring to Last Menstrual cycle. Will hold off on imaging studies unless otherwise advised by Neurology. Oxygen saturation improved, imaging studies with some concern for aspiration. Will obtain ID consult, rule out COVID19, LFT improving some. Will provide more counselling on substance abuse when more awake. Also discussed with cardiology, will start patient on cardizem 120mg PO daily 03/06: Patient started on clonidine 0.2 mg 3 times daily, labetalol as needed. MRSA pending. Continue antibiotic therapy. Will trend LFTs and per ID suggestion will consider hepatic panel/ultrasound if worsening. Hospitalist Physical - Constitutional Vitals: Temp Pulse Resp BP Pulse Ox 98.9 F 84 22 109/54 97 03/06/22 13:05 03/06/22 15:00 03/06/22 15:00 03/06/22 15:00 03/06/22 15:00 General appearance: Present: no acute distress - EENT Eyes: Present: PERRL, EOM intact ENT: clear oral mucosa - Neck Neck: Present: normal ROM - Respiratory Respiratory effort: normal Respiratory: bilateral: CTA - Cardiovascular Rhythm: regular Heart Sounds: Present: S1 & S2. Absent: systolic murmur, diastolic murmur - Extremities Extremities: no ischemia, pulses intact, pulses symmetrical, No edema, normal temperature, normal color Peripheral Pulses: within normal limits - Abdominal General gastrointestinal: soft, non-tender, non-distended, normal bowel sounds - Integumentary Integumentary: Present: warm, dry - Psychiatric Psychiatric: cooperative, other (Flat affect) - Neurologic Neurologic: CNII-XII intact, no focal deficits, moves all extremities - Allied Health Allied health notes reviewed: nursing, social work Results - Labs CBC & Chem 7: 03/06/22 04:07 03/06/22 04:07 Labs: Laboratory Last Values WBC 11.5 K/mm3 (4.5-11.0) H 03/06/22 04:07 RBC 4.17 M/mm3 (3.65-5.03) 03/06/22 04:07 Hgb 11.2 gm/dl (10.1-14.3) 03/06/22 04:07 Hct 34.9 % (30.3-42.9) 03/06/22 04:07 MCV 84 fl (79-97) 03/06/22 04:07 MCH 27 pg (28-32) L 03/06/22 04:07 MCHC 32 % (30-34) 03/06/22 04:07 RDW 16.5 % (13.2-15.2) H 03/06/22 04:07 Plt Count 328 K/mm3 (140-440) 03/06/22 04:07 Lymph % (Auto) 8.8 % (13.4-35.0) L 03/05/22 07:46 [place] % (Auto) 3.1 % (0.0-7.3) 03/05/22 07:46 Eos % (Auto) 0.0 % (0.0-4.3) 03/05/22 07:46 Baso % (Auto) 0.1 % (0.0-1.8) 03/05/22 07:46 Lymph # (Auto) 1.3 K/mm3 (1.2-5.4) 03/05/22 07:46 [place] # (Auto) 0.4 K/mm3 (0.0-0.8) 03/05/22 07:46 Eos # (Auto) 0.0 K/mm3 (0.0-0.4) 03/05/22 07:46 Baso # (Auto) 0.0 K/mm3 (0.0-0.1) 03/05/22 07:46 Add Manual Diff Complete 03/04/22 12:20 Total Counted 100 03/04/22 12:20 Seg Neutrophils % 88.0 % (40.0-70.0) H 03/05/22 07:46 Seg Neuts % (Manual) 78.0 % (40.0-70.0) H 03/04/22 12:20 Band Neutrophils % 7.0 % 03/04/22 12:20 Lymphocytes % (Manual) 11.0 % (13.4-35.0) L 03/04/22 12:20 Reactive Lymphs % (Man) 0 % 03/04/22 12:20 Monocytes % (Manual) 3.0 % (0.0-7.3) 03/04/22 12:20 Eosinophils % (Manual) 0 % (0.0-4.3) 03/04/22 12:20 Basophils % (Manual) 0 % (0.0-1.8) 03/04/22 12:20 Metamyelocytes % 1.0 % 03/04/22 12:20 Myelocytes % 0 % 03/04/22 12:20 Promyelocytes % 0 % 03/04/22 12:20 Blast Cells % 0 % 03/04/22 12:20 Nucleated RBC % Not Reportable 03/04/22 12:20 Seg Neutrophils # 12.8 K/mm3 (1.8-7.7) H 03/05/22 07:46 Seg Neutrophils # Man 10.2 K/mm3 (1.8-7.7) H 03/04/22 12:20 Band Neutrophils # 0.9 K/mm3 03/04/22 12:20 Lymphocytes # (Manual) 1.4 K/mm3 (1.2-5.4) 03/04/22 12:20 Abs React Lymphs (Man) 0.0 K/mm3 03/04/22 12:20 Monocytes # (Manual) 0.4 K/mm3 (0.0-0.8) 03/04/22 12:20 Eosinophils # (Manual) 0.0 K/mm3 (0.0-0.4) 03/04/22 12:20 Basophils # (Manual) 0.0 K/mm3 (0.0-0.1) 03/04/22 12:20 Metamyelocytes # 0.1 K/mm3 03/04/22 12:20 Myelocytes # 0.0 K/mm3 03/04/22 12:20 Promyelocytes # 0.0 K/mm3 03/04/22 12:20 Blast Cells # 0.0 K/mm3 03/04/22 12:20 WBC Morphology Not Reportable 03/04/22 12:20 Hypersegmented Neuts Not Reportable 03/04/22 12:20 Hyposegmented Neuts Not Reportable 03/04/22 12:20 Hypogranular Neuts Not Reportable 03/04/22 12:20 Smudge Cells Not Reportable 03/04/22 12:20 Toxic Granulation Not Reportable 03/04/22 12:20 Toxic Vacuolation Not Reportable 03/04/22 12:20 Dohle Bodies Not Reportable 03/04/22 12:20 Pelger-Huet Anomaly Not Reportable 03/04/22 12:20 Kateryna Rods Not Reportable 03/04/22 12:20 Platelet Estimate Consistent w auto 03/04/22 12:20 Clumped Platelets Not Reportable 03/04/22 12:20 Plt Clumps, EDTA Not Reportable 03/04/22 12:20 Large Platelets Not Reportable 03/04/22 12:20 Giant Platelets Not Reportable 03/04/22 12:20 Platelet Satelliting Not Reportable 03/04/22 12:20 Plt Morphology Comment Not Reportable 03/04/22 12:20 RBC Morphology Not Reportable 03/04/22 12:20 Dimorphic RBCs Not Reportable 03/04/22 12:20 Polychromasia Not Reportable 03/04/22 12:20 Hypochromasia Not Reportable 03/04/22 12:20 Poikilocytosis Not Reportable 03/04/22 12:20 Anisocytosis 1+ 03/04/22 12:20 Microcytosis Not Reportable 03/04/22 12:20 Macrocytosis Not Reportable 03/04/22 12:20 Spherocytes Not Reportable 03/04/22 12:20 Pappenheimer Bodies Not Reportable 03/04/22 12:20 Sickle Cells Not Reportable 03/04/22 12:20 Target Cells Not Reportable 03/04/22 12:20 Tear Drop Cells Not Reportable 03/04/22 12:20 Ovalocytes Not Reportable 03/04/22 12:20 Helmet Cells Not Reportable 03/04/22 12:20 Kline-Lengby Bodies Not Reportable 03/04/22 12:20 [place] Rings Not Reportable 03/04/22 12:20 [place] Cells Not Reportable 03/04/22 12:20 Bite Cells Not Reportable 03/04/22 12:20 Crenated Cell Not Reportable 03/04/22 12:20 Elliptocytes Not Reportable 03/04/22 12:20 Acanthocytes (Spur) Not Reportable 03/04/22 12:20 Rouleaux Not Reportable 03/04/22 12:20 Hemoglobin C Crystals Not Reportable 03/04/22 12:20 Schistocytes Not Reportable 03/04/22 12:20 Malaria parasites Not Reportable 03/04/22 12:20 Chucho Bodies Not Reportable 03/04/22 12:20 Hem Pathologist Commnt No 03/04/22 12:20 PT 15.7 Sec. (12.2-14.9) H 03/04/22 12:20 INR 1.12 (0.87-1.13) 03/04/22 12:20 D-Dimer 9294.58 ng/mlDDU (0-234) H 03/05/22 10:19 ABG pH 7.232 pH Units (7.350-7.450) L 03/04/22 20:47 ABG pCO2 44.0 mm Hg 03/04/22 20:47 ABG pO2 50.1 mm Hg (80.0-90.0) L 03/04/22 20:47 ABG HCO3 18.1 mmol/L (20.0-26.0) L 03/04/22 20:47 ABG O2 Saturation 81.8 % (95.0-99.0) L 03/04/22 20:47 ABG O2 Content 12.5 (0.0-44) 03/04/22 20:47 ABG Base Excess -9.0 mmol/L (-2.0-3.0) L 03/04/22 20:47 ABG Hemoglobin 11.1 gm/dl (12.0-16.0) L 03/04/22 20:47 ABG Carboxyhemoglobin 1.6 % (0.0-5.0) 03/04/22 20:47 ABG Methemoglobin 0.8 % (0.0-1.5) 03/04/22 20:47 Oxyhemoglobin 79.8 % (95.0-99.0) L 03/04/22 20:47 FiO2 21 % 03/04/22 20:47 Sodium 136 mmol/L (137-145) L 03/06/22 04:07 Potassium 3.9 mmol/L (3.6-5.0) 03/06/22 04:07 Chloride 103.4 mmol/L (98-107) 03/06/22 04:07 Carbon Dioxide 19 mmol/L (22-30) L 03/06/22 04:07 Anion Gap 18 mmol/L 03/06/22 04:07 BUN 7 mg/dL (7-17) 03/06/22 04:07 Creatinine 1.1 mg/dL (0.6-1.2) 03/06/22 04:07 Estimated GFR > 60 ml/min 03/06/22 04:07 BUN/Creatinine Ratio 6 % 03/06/22 04:07 Glucose 108 mg/dL (65-100) H 03/06/22 04:07 Lactic Acid 1.40 mmol/L (0.7-2.0) 03/05/22 07:46 Calcium 9.0 mg/dL (8.4-10.2) 03/06/22 04:07 Magnesium 2.00 mg/dL (1.7-2.3) 03/04/22 18:43 Ferritin 290.6 ng/mL (10.0-200.0) H 03/05/22 09:33 Total Bilirubin 0.30 mg/dL (0.1-1.2) 03/06/22 04:07 Direct Bilirubin < 0.2 mg/dL (0-0.2) 03/04/22 18:43 Indirect Bilirubin 0.1 mg/dL 03/04/22 18:43 AST 52 units/L (5-40) H 03/06/22 04:07 ALT 205 units/L (7-56) H 03/06/22 04:07 Alkaline Phosphatase 165 units/L (35-129) H 03/06/22 04:07 Lactate Dehydrogenase 627 units/L (91-180) H 03/05/22 07:46 Total Creatine Kinase 112 units/L (30-135) 03/04/22 12:20 C-Reactive Protein 0.40 mg/dL (0.00-1.30) 03/05/22 07:46 Total Protein 8.0 g/dL (6.3-8.2) D 03/06/22 04:07 Albumin 3.6 g/dL (3.9-5) L 03/06/22 04:07 Albumin/Globulin Ratio 0.8 % 03/06/22 04:07 Procalcitonin 0.42 ng/mL (<0.15) 03/05/22 09:33 TSH 0.928 mlU/mL (0.270-4.200) 03/04/22 18:43 Free T4 1.10 ng/dL (0.76-1.46) 03/04/22 18:43 HCG, Quant < 2 mIU/mL (0-4) 03/04/22 12:20 Urine Color Straw (Yellow) 03/04/22 12:31 Urine Turbidity Clear (Clear) 03/04/22 12:31 Urine pH 7.0 (5.0-7.0) 03/04/22 12:31 Ur Specific [place] 1.005 (1.003-1.030) 03/04/22 12:31 Urine Protein 100 mg/dl mg/dL (Negative) 03/04/22 12:31 Urine Glucose (UA) Neg mg/dL (Negative) 03/04/22 12:31 Urine Ketones Neg mg/dL (Negative) 03/04/22 12:31 Urine Blood Sm (Negative) 03/04/22 12:31 Urine Nitrite Neg (Negative) 03/04/22 12:31 Urine Bilirubin Neg (Negative) 03/04/22 12:31 Urine Urobilinogen < 2.0 mg/dL (<2.0) 03/04/22 12:31 Ur Leukocyte Esterase Neg (Negative) 03/04/22 12:31 Urine WBC (Auto) 4.0 /HPF (0.0-6.0) 03/04/22 12:31 Urine RBC (Auto) 3.0 /HPF (0.0-6.0) 03/04/22 12:31 U Epithel Cells (Auto) 2.0 /HPF (0-13.0) 03/04/22 12:31 Urine Bacteria (Auto) 1+ /HPF (Negative) 03/04/22 12:31 Urine Mucus Few /HPF 03/04/22 12:31 Urine HCG, Qual Positive (Negative) A 03/04/22 12:31 Salicylates < 0.3 mg/dL (2.8-20.0) L 03/04/22 12:20 Urine Opiates Screen Negative 03/04/22 12:31 Urine Methadone Screen Negative 03/04/22 12:31 Acetaminophen 5.0 ug/mL (10.0-30.0) L 03/04/22 12:20 Ur Barbiturates Screen Negative 03/04/22 12:31 Ur Phencyclidine Scrn Negative 03/04/22 12:31 Ur Amphetamines Screen Negative 03/04/22 12:31 U Benzodiazepines Scrn Negative 03/04/22 12:31 Urine Cocaine Screen Positive 03/04/22 12:31 U Marijuana (THC) Screen Positive 03/04/22 12:31 Drugs of Abuse Note Disclamer 03/04/22 12:31 Plasma/Serum Alcohol < 0.01 % (0-0.07) 03/04/22 12:20 Coronavirus (PCR) Negative (Negative) 03/05/22 08:56 Blood Type O POSITIVE 03/04/22 16:40 Antibody Screen Negative 03/04/22 16:40 Microbiology: Microbiology 03/04/22 16:37 Peripheral/Venous Blood Culture - Preliminary NO GROWTH AFTER 24 HOURS 03/04/22 16:37 Peripheral/Venous Blood Culture - Preliminary NO GROWTH AFTER 24 HOURS Leahy/IV: Voiding Method Toilet Active Medications - Current Medications Current Medications: Generic Name Dose Route Start Last Admin Trade Name Freq PRN Reason Stop Dose Admin Acetaminophen 650 mg 03/04/22 18:03 03/06/22 08:32 Acetaminophen 325 Mg Tab PO 650 mg Q4H PRN Administration Pain MILD(1-3)/Fever >100.5/[place] Albuterol 2.5 mg 03/04/22 18:03 Albuterol 2.5 Mg/3 Ml Nebu IH Q4HRT PRN Shortness Of Breath Clonidine HCl 0.2 mg 03/06/22 12:00 03/06/22 11:42 Clonidine 0.2 Mg Tab PO 0.2 mg BID WYATT Administration Diltiazem HCl 240 mg 03/06/22 10:00 03/06/22 09:13 Diltiazem Cd 240 Mg Cap PO 240 mg QDAY WYATT Administration Folic Acid 1 mg 03/05/22 10:00 03/06/22 09:14 Folic Acid 1 Mg Tab PO 1 mg QDAY WYATT Administration Hydralazine HCl 10 mg 03/05/22 14:06 03/06/22 08:37 Hydralazine 20 Mg/1 Ml Inj IV 10 mg Q6HR PRN Administration Blood Pressure Hydralazine HCl 100 mg 03/06/22 11:00 03/06/22 11:45 Hydralazine 100 Mg Tab PO 100 mg BID WYATT Administration Hydromorphone HCl 0.25 mg 03/04/22 17:00 Hydromorphone 1 Mg/1 Ml Inj IV Q8H PRN Pain, Moderate (4-6) Hydromorphone HCl 0.5 mg 03/04/22 17:00 Hydromorphone 1 Mg/1 Ml Inj IV Q12H PRN Pain , Severe (7-10) Vancomycin HCl 1 gm in 250 mls @ 166.667 mls/hr 03/05/22 23:00 03/06/22 00:22 Vancomycin/Ns 1 Gm/250 Ml IV 166.667 mls/hr Q24H WYATT Administration Ceftriaxone Sodium 1 gm in 50 mls @ 100 mls/hr 03/05/22 09:00 03/06/22 09:14 Rocephin/Ns 1 Gm/50 Ml IV 03/09/22 09:29 100 mls/hr Q24H WYATT Administration Protocol Nicardipine HCl 50 mg/ Sodium 250 mls @ 25 mls/hr 03/05/22 17:30 03/05/22 21:52 Chloride IV 0 mg/hr TITR WYATT 0 mls/hr Titration Protocol 5 MG/HR Labetalol HCl 10 mg 03/06/22 11:35 Labetalol 20 Mg/4 Ml Inj IV Q6H PRN SBP >/=160 Lorazepam 2 mg 03/04/22 18:28 Lorazepam 2 Mg/Ml Vial IV Q1HR PRN CIWA-Ar 8-15 Ondansetron HCl 4 mg 03/04/22 18:03 Ondansetron 4 Mg/2 Ml Inj IV Q8H PRN Nausea And Vomiting Oxycodone/Acetaminophen 1 tab 03/04/22 18:03 03/05/22 07:12 Oxycodone /Acetaminophen 5-325mg Tab PO 1 tab Q16H PRN Administration Pain, Moderate (4-6) Sodium Chloride 10 ml 03/04/22 22:00 03/06/22 09:11 Sodium Chloride 0.9% 10 Ml Flush Syringe IV 10 ml BID WYATT Administration Sodium Chloride 10 ml 03/04/22 18:03 Sodium Chloride 0.9% 10 Ml Flush Syringe IV PRN PRN LINE FLUSH
--- NOTE | 2022-03-06 20:10 | Consultation ---
History of Present Illness Consult date: 03/06/22 Requesting physician: MARLEE ROSEN Reason for consult: other (Hypertensive Emergency) History of present illness: PULMONARY/CCM CONSULT NOTE (Full dictation # [id number]) Please see dictated notes for full details Past History Past Medical History: hypertension, other (See HPI) Past Surgical History: Social history: single, lives with family, smoking, alcohol abuse. denies: prescription drug abuse, IV drug use Family history: diabetes, hypertension Medications and Allergies Allergies Allergy/AdvReac Type Severity Reaction Status Date / Time No Known Allergies Allergy Unverified 03/04/22 12:40 Active Meds: Active Medications Acetaminophen (Acetaminophen 325 Mg Tab) 650 mg PO Q4H PRN PRN Reason: Pain MILD(1-3)/Fever >100.5/[place] Last Admin: 03/06/22 08:32 Dose: 650 mg Albuterol (Albuterol 2.5 Mg/3 Ml Nebu) 2.5 mg IH Q4HRT PRN PRN Reason: Shortness Of Breath Clonidine HCl (Clonidine 0.2 Mg Tab) 0.2 mg PO BID [facility] Last Admin: 03/06/22 11:42 Dose: 0.2 mg Diltiazem HCl (Diltiazem Cd 240 Mg Cap) 240 mg PO QDAY [facility] Last Admin: 03/06/22 09:13 Dose: 240 mg Famotidine (Famotidine 20 Mg Tab) 20 mg PO QDAY [facility] Folic Acid (Folic Acid 1 Mg Tab) 1 mg PO QDAY [facility] Last Admin: 03/06/22 09:14 Dose: 1 mg Heparin Sodium (Porcine) (Heparin 5,000 Unit/1 Ml Vial) 5,000 unit SUB-Q Q12HR [facility] Hydralazine HCl (Hydralazine 20 Mg/1 Ml Inj) 10 mg IV Q6HR PRN PRN Reason: Blood Pressure Last Admin: 03/06/22 08:37 Dose: 10 mg Hydralazine HCl (Hydralazine 100 Mg Tab) 100 mg PO BID [facility] Last Admin: 03/06/22 11:45 Dose: 100 mg Hydromorphone HCl (Hydromorphone 1 Mg/1 Ml Inj) 0.25 mg IV Q8H PRN PRN Reason: Pain, Moderate (4-6) Hydromorphone HCl (Hydromorphone 1 Mg/1 Ml Inj) 0.5 mg IV Q12H PRN PRN Reason: Pain , Severe (7-10) Vancomycin HCl (Vancomycin/Ns 1 Gm/250 Ml) 1 gm in 250 mls @ 166.667 mls/hr IV Q24H WYATT Last Admin: 03/06/22 00:22 Dose: 166.667 mls/hr Ceftriaxone Sodium (Rocephin/Ns 1 Gm/50 Ml) 1 gm in 50 mls @ 100 mls/hr IV Q24H WYATT; Protocol Stop: 03/09/22 09:29 Last Admin: 03/06/22 09:14 Dose: 100 mls/hr Nicardipine HCl 50 mg/ Sodium (Chloride) 250 mls @ 25 mls/hr IV TITR [facility]; Protocol Last Titration: 03/05/22 21:52 Dose: 0 mg/hr, 0 mls/hr Labetalol HCl (Labetalol 20 Mg/4 Ml Inj) 10 mg IV Q6H PRN PRN Reason: SBP >/=160 Lorazepam (Lorazepam 2 Mg/Ml Vial) 2 mg IV Q1HR PRN PRN Reason: CIWA-Ar 8-15 Ondansetron HCl (Ondansetron 4 Mg/2 Ml Inj) 4 mg IV Q8H PRN PRN Reason: Nausea And Vomiting Oxycodone/Acetaminophen (Oxycodone /Acetaminophen 5-325mg Tab) 1 tab PO Q16H PRN PRN Reason: Pain, Moderate (4-6) Last Admin: 03/05/22 07:12 Dose: 1 tab Sodium Chloride (Sodium Chloride 0.9% 10 Ml Flush Syringe) 10 ml IV BID [facility] Last Admin: 03/06/22 09:11 Dose: 10 ml Sodium Chloride (Sodium Chloride 0.9% 10 Ml Flush Syringe) 10 ml IV PRN PRN PRN Reason: LINE FLUSH Physical Examination Vital signs: Vital Signs Pulse 149 H 03/04/22 12:31 Results - Laboratory Findings CBC and BMP: 03/07/22 04:15 03/07/22 04:15 ABG ABG pH 7.232 pH Units (7.350-7.450) L 03/04/22 20:47 ABG pCO2 44.0 mm Hg 03/04/22 20:47 ABG pO2 50.1 mm Hg (80.0-90.0) L 03/04/22 20:47 ABG O2 Saturation 81.8 % (95.0-99.0) L 03/04/22 20:47 PT/INR, D-dimer PT 15.7 Sec. (12.2-14.9) H 03/04/22 12:20 INR 1.12 (0.87-1.13) 03/04/22 12:20 D-Dimer 9294.58 ng/mlDDU (0-234) H 03/05/22 10:19 Abnormal lab findings: Abnormal Labs 03/04/22 03/04/22 03/04/22 12:20 12:20 12:20 WBC 13.1 H Hgb MCH 27 L RDW 16.3 H Plt Count 447 H Lymph % (Auto) Seg Neutrophils % Seg Neuts % (Manual) 78.0 H Lymphocytes % (Manual) 11.0 L Seg Neutrophils # Seg Neutrophils # Man 10.2 H PT 15.7 H D-Dimer 3882.77 H ABG pH ABG pO2 ABG HCO3 ABG O2 Saturation ABG Base Excess ABG Hemoglobin Oxyhemoglobin Sodium Carbon Dioxide 15 L BUN 18 H Creatinine 2.1 H Glucose Lactic Acid Calcium Ferritin AST 206 H ALT 197 H Alkaline Phosphatase 140 H Lactate Dehydrogenase Total Protein 8.5 H Albumin Urine HCG, Qual Salicylates Acetaminophen 03/04/22 03/04/22 03/04/22 12:20 12:20 12:20 WBC Hgb MCH RDW Plt Count Lymph % (Auto) Seg Neutrophils % Seg Neuts % (Manual) Lymphocytes % (Manual) Seg Neutrophils # Seg Neutrophils # Man PT D-Dimer ABG pH ABG pO2 ABG HCO3 ABG O2 Saturation ABG Base Excess ABG Hemoglobin Oxyhemoglobin Sodium Carbon Dioxide BUN Creatinine Glucose Lactic Acid 8.40 H* Calcium Ferritin AST ALT Alkaline Phosphatase Lactate Dehydrogenase Total Protein Albumin Urine HCG, Qual Salicylates < 0.3 L Acetaminophen 5.0 L 03/04/22 03/04/22 03/04/22 12:31 15:49 18:43 WBC Hgb MCH RDW Plt Count Lymph % (Auto) Seg Neutrophils % Seg Neuts % (Manual) Lymphocytes % (Manual) Seg Neutrophils # Seg Neutrophils # Man PT D-Dimer ABG pH ABG pO2 ABG HCO3 ABG O2 Saturation ABG Base Excess ABG Hemoglobin Oxyhemoglobin Sodium Carbon Dioxide BUN Creatinine Glucose Lactic Acid 3.60 H* Calcium Ferritin AST 376 H ALT 344 H Alkaline Phosphatase 161 H Lactate Dehydrogenase Total Protein Albumin Urine HCG, Qual Positive A Salicylates Acetaminophen 03/04/22 03/04/22 03/05/22 20:47 Unknown 07:46 WBC 14.5 H Hgb 10.0 L MCH 27 L RDW 16.6 H Plt Count Lymph % (Auto) 8.8 L Seg Neutrophils % 88.0 H Seg Neuts % (Manual) Lymphocytes % (Manual) Seg Neutrophils # 12.8 H Seg Neutrophils # Man PT D-Dimer ABG pH 7.232 L ABG pO2 50.1 L ABG HCO3 18.1 L ABG O2 Saturation 81.8 L ABG Base Excess -9.0 L ABG Hemoglobin 11.1 L Oxyhemoglobin 79.8 L Sodium Carbon Dioxide BUN Creatinine Glucose Lactic Acid 2.70 H* Calcium Ferritin AST ALT Alkaline Phosphatase Lactate Dehydrogenase Total Protein Albumin Urine HCG, Qual Salicylates Acetaminophen 03/05/22 03/05/22 03/05/22 07:46 07:46 09:33 WBC Hgb MCH RDW Plt Count Lymph % (Auto) Seg Neutrophils % Seg Neuts % (Manual) Lymphocytes % (Manual) Seg Neutrophils # Seg Neutrophils # Man PT D-Dimer ABG pH ABG pO2 ABG HCO3 ABG O2 Saturation ABG Base Excess ABG Hemoglobin Oxyhemoglobin Sodium Carbon Dioxide 20 L BUN Creatinine 1.3 H Glucose 129 H Lactic Acid Calcium 8.3 L Ferritin 290.6 H AST 144 H ALT 249 H Alkaline Phosphatase 143 H Lactate Dehydrogenase 627 H Total Protein Albumin 3.4 L Urine HCG, Qual Salicylates Acetaminophen 03/05/22 03/06/22 03/06/22 10:19 04:07 04:07 WBC 11.5 H Hgb MCH 27 L RDW 16.5 H Plt Count Lymph % (Auto) Seg Neutrophils % Seg Neuts % (Manual) Lymphocytes % (Manual) Seg Neutrophils # Seg Neutrophils # Man PT D-Dimer 9294.58 H ABG pH ABG pO2 ABG HCO3 ABG O2 Saturation ABG Base Excess ABG Hemoglobin Oxyhemoglobin Sodium 136 L Carbon Dioxide 19 L BUN Creatinine Glucose 108 H Lactic Acid Calcium Ferritin AST 52 H ALT 205 H Alkaline Phosphatase 165 H Lactate Dehydrogenase Total Protein Albumin 3.6 L Urine HCG, Qual Salicylates Acetaminophen
[2022-03-06] MEDS: HEPARIN 5,000 UNIT/1 ML VIAL SUB-Q SCH (23:18)
[2022-03-07 05:07] LABS: Hematocrit 33.5 % (30.3-42.9); Mean Corpuscular HGB Conc 33 % (30-34); Mean Corpuscular Volume 83 fl (79-97); Platelet Count 355 K/mm3 (140-440); Red Blood Count 4.04 M/mm3 (3.65-5.03); Red Cell Distribution Width 16.5 % (13.2-15.2)
[2022-03-07 05:27] LABS: Albumin 3.3 g/dL (3.9-5); Calcium 8.8 mg/dL (8.4-10.2)
[2022-03-07] MEDS ORDERED: FAMOTIDINE 20 MG TAB PO SCH (10:00)
[2022-03-07] MEDS: cefTRIAXone/NS 1 GM/50 ML 1 GM/50 ML BAG IV SCH (10:02)
[2022-03-07] MEDS: FOLIC ACID 1 MG TAB PO SCH (10:03)
[2022-03-07] MEDS: hydrALAZINE 100 MG TAB PO SCH (10:03)
[2022-03-07] MEDS: HEPARIN 5,000 UNIT/1 ML VIAL SUB-Q SCH (10:03)
[2022-03-07] MEDS: dilTIAZem CD 240 MG CAP PO SCH (10:03)
[2022-03-07] MEDS: cloNIDine 0.2 MG TAB PO SCH (10:04)
[2022-03-07 10:05] VITALS: BP 122/69
--- NOTE | 2022-03-07 11:06 | Progress Note ---
Assessment and Plan 31-year-old female was brought into the hospital 03/04/22 for AMS and hypoxemia was found to have cocaine positive history of nicotine and EtOH abuse. New Afib. Patient received 2 doses of Cardizem. patient is maintaining sinus rhythm. Patient's duration of atrial fibrillation was less than 12 hours. Assessment New onset atrial fibrillation-now resolved Acute hypoxemic respiratory failure Elevated LFTs Altered mental status -neurology following ANTONINO Alcohol dependence Cocaine Hypertension Cardiographics EKG: Atrial fibrillation- (Atrial fibrillation nonspecific ST-T) Echocardiogram 03/04/22: Left ventricle: The left ventricle systolic function is normal. The left ventricular ejection fraction is within the normal range. LVEF is 5055%. Right ventricle: Right ventricle systolic function is normal. Aortic valve: There is no aortic valvular stenosis. Mitral valve: There is no mitral valve regurg Tatian noted. Tricuspid valve: Trace tricuspid regurgitation. RSVP is 19 mmHg. Pulmonic valve: Trace pulmonic regurgitation Recommendations/plan: See echo report as above. Patient has sustained in NSR No oral anticoagulation given short duration of A. fib. Continue low-dose Cardizem 240 mg p.o. daily. Continue clonidine and continue hydralazine to 100 mg PO twice daily for BP control. Stable from cardiac standpoint. We will sign off. Patient seen in conjunction with Dr. El who agrees with the assessment and management of this patient. - Patient Problems (1) Alcohol dependence Current Visit: Yes Status: Acute (2) Altered mental status Current Visit: Yes Status: Acute (3) Cocaine abuse Current Visit: Yes Status: Acute (4) Elevated liver function tests Current Visit: Yes Status: Acute (5) Nicotine dependence Current Visit: Yes Status: Acute Qualifiers: Nicotine product type: cigarettes (6) ANTONINO (acute kidney injury) Current Visit: Yes Status: Acute Subjective Date of service: 03/07/22 Principal diagnosis: AMS Interval history: Patient seen and examined today in hospital room. Patient much improved. Awake and alert. Responding appropriately to commands; speech clear and coherent. No acute distress. Telemetry: Not currently on monitor Objective Vital Signs Temp Pulse Pulse Resp BP Pulse Ox 03/07/22 10:04 76 122/69 03/07/22 10:03 76 122/69 03/07/22 04:23 98.1 F 71 16 104/62 97 03/07/22 04:00 82 82 22 98 03/06/22 22:01 98.6 F 85 16 129/64 100 03/06/22 21:50 100 03/06/22 21:00 124/90 99 03/06/22 20:30 77 13 109/68 99 03/06/22 20:00 98.8 F 79 17 122/81 98 03/06/22 19:53 99 03/06/22 19:30 83 22 104/66 99 03/06/22 19:00 85 23 111/57 98 03/06/22 18:30 80 21 111/62 97 03/06/22 18:00 82 13 114/73 99 03/06/22 17:30 98.5 F 85 17 109/66 03/06/22 17:01 93 H 21 103/58 98 03/06/22 16:30 81 19 114/68 03/06/22 16:04 85 85 24 98 03/06/22 16:00 83 19 119/69 97 03/06/22 15:30 80 16 113/57 96 03/06/22 15:00 84 22 109/54 97 03/06/22 14:30 83 20 112/58 97 03/06/22 14:00 85 20 101/56 98 03/06/22 13:30 78 15 113/48 99 03/06/22 13:05 98.9 F 03/06/22 13:00 81 19 107/57 97 03/06/22 12:30 81 24 106/62 94 03/06/22 12:00 78 79 21 126/89 97 03/06/22 11:42 86 163/91 03/06/22 11:39 98.6 F 03/06/22 11:30 81 22 163/91 97 - Physical Examination General: Appears Well, No Apparent Distress HEENT: Positive: EOMI, Normocephaly, Mucus Membranes Moist Neck: Positive: trachea midline Cardiac: Positive: Reg Rate and Rhythm Lungs: Positive: clear to auscultation Neuro: Positive: Grossly Intact Abdomen: Positive: Soft, Active Bowel Sounds Skin: Negative: Rash Extremities: Present: normal, warm. Absent: edema - Labs and Meds Cardiac Enzymes 03/07/22 Range/Units 04:15 AST 17 (5-40) units/L CBC 03/07/22 Range/Units 04:15 WBC 8.6 (4.5-11.0) K/mm3 RBC 4.04 (3.65-5.03) M/mm3 Hgb 11.0 (10.1-14.3) gm/dl Hct 33.5 (30.3-42.9) % Plt Count 355 (140-440) K/mm3 Comprehensive Metabolic Panel 03/07/22 Range/Units 04:15 Sodium 136 L (137-145) mmol/L Potassium 4.1 (3.6-5.0) mmol/L Chloride 103.0 (98-107) mmol/L Carbon Dioxide 20 L (22-30) mmol/L BUN 13 (7-17) mg/dL Creatinine 1.4 H (0.6-1.2) mg/dL Glucose 114 H (65-100) mg/dL Calcium 8.8 (8.4-10.2) mg/dL AST 17 (5-40) units/L ALT 110 H (7-56) units/L Alkaline Phosphatase 136 H (35-129) units/L Total Protein 7.3 (6.3-8.2) g/dL Albumin 3.3 L (3.9-5) g/dL - Imaging and Cardiology Echo: report reviewed
--- NOTE | 2022-03-07 11:12 | Discharge Summary ---
Providers - Providers Date of Admission: 03/04/22 18:03 Date of discharge: 03/07/22 Attending physician: CHRISTINA CALHOUN MD 03/04/22 18:06 Consult to Cardiology [CONS] Routine Consulting Provider: DAVIN COLEMAN Reason For Exam: New onset A Fib 03/05/22 08:53 Consult to Physician [CONS] Routine Comment: Consulting Provider: KENDRICK SALAZAR Physician Instructions: Reason For Exam: pneumonia 03/05/22 08:54 Consult to Physician [CONS] Routine Comment: Consulting Provider: CLARA GEORGE Physician Instructions: Reason For Exam: AMS 03/05/22 20:03 Consult to Physician [CONS] Routine Comment: Consulting Provider: TIERRA LARKIN Physician Instructions: Reason For Exam: hypertensive emergency Primary care physician: PAVER OPERATOR Hospitalization Reason for admission: altered mental status Condition: Stable Hospital course: History Interval history: This is a 31-year-old female with HTN, EtOH and nicotine dependence who presented to the emergency department on 02/22 via EMS for altered mental status. As per daughters patient was found in her bed to be confused with saliva emanating from her mouth and they notified the grandmother who instructed them to call EMS. In the ED patient was found to have a pulse ox of 84% on room air consistent with acute hypoxic respiratory failure, CXR revealed pneumonia, lab work revealed acidosis, ANTONINO with ATN and new onset atrial fibrillation. Patient was admitted to the hospital service to [facility] initiated on sepsis and pneumonia protocol. Cardiology was consulted in the emergency department. Hospital course to date: 03/05/22: Patient seen and examined, Neurology to evaluate, ?Concern about , she did not answer question referring to Last Menstrual cycle. Will hold off on imaging studies unless otherwise advised by Neurology. Oxygen saturation improved, imaging studies with some concern for aspiration. Will obtain ID consult, rule out COVID19, LFT improving some. Will provide more counselling on substance abuse when more awake. Also discussed with cardiology, will start patient on cardizem 120mg PO daily 03/06: Patient started on clonidine 0.2 mg 3 times daily, labetalol as needed. MRSA pending. Continue antibiotic therapy. Will trend LFTs and per ID suggestion will consider hepatic panel/ultrasound if worsening. 03/07: Symptomology resolved. LFT's downtrending. US LE negative for DVT. Will d/c home on ceftin 500 mg po q12 x 1 day to complete abx course. Will also send rx for diltiazem CD2 140 mg p.o. daily, clonidine 0.2 mg p.o. twice daily, hydralazine 100 mg p.o. twice daily. All medications transmitted to patient's pharmacy at [facility]. She is advised to follow-up with her primary care doctor in 3 to 5 days Neuro: s/p toxic metabolic encephalopathy,h/o nicotine, EtOH and cocaine abuse -UDS positive for cocaine and marijuana -Patient is adamant she does not use cocaine and that her marijuana was laced with cocaine -Avoid delirium -Reorientation as needed -Maintain sleep-wake cycle -Consider psych consult for flat affect -Neurology consulted, patient recommendations Cardiac: s/p new onset atrial fibrillation (resolved), h/o HTN -Had a short duration of atrial fibrillation in the emergency department -Currently on Cardizem p.o. -Cardiology consulted, appreciate recommendations -Blood pressure monitoring per protocol -Antihypertensive regimen: Clonidine, hydralazine (titrate as needed) -Labetalol as needed -Echocardiogram shows normal bivalve function, LVEF 50 to 55%, RVSP 19 mmHg -CCM consulted, appreciate recommendations Respiratory: Acute hypoxic respiratory failure -Currently on nasal cannula -SOB much exercise. -SPO2 monitor per protocol -Pulmonary hygiene GI: Transaminitis, protein calorie malnutrition -24 hours -2903 mL -PPI -NTR consulted for tube feedings -BR: -Trend LFT : Slight hyponatremia, slight hypochloremia, acute kidney injury likely secondary to vasomotor nephropathy (resolved) -Strict intake and output -Renally dose medications -Avoid nephrotoxic medications -Daily weights -Trend BMP ID: Left-sided pneumonia -COVID-19 PCR -Infectious disease consulted, appreciate recommendation -Antibiotic therapy with ceftriaxone for 5 days and vancomycin (can discontinue vancomycin if MRSA PCR negative) -Per ID if discharged can switch to p.o. Ceftin 500 mg twice daily to complete course -MRSA PCR pending -f/u blood culture -Monitor WBC and temperature curve Endo: NAD -Avoid hypoglycemia Heme: Leukocytosis, elevated D-dimer, lactic acidosis (resolved) -Trend CBC -Transfuse hemoglobin less than 7 -Monitor for signs of bleeding -SCDs to BLE while in bed -VQ scan shows low probability of pulm embolism -LE US negative for DVT Disposition: 30 STILL A PATIENT Final Discharge Diagnosis (Prints w/discharge instructions): pneumonia, acute metabolic encephalopathy, cocaine abuse, etoh abuse Time spent for discharge: 35 Core Measure Documentation - Palliative Care Palliative Care/ Comfort Measures: Not Applicable - Core Measures Any of the following diagnoses?: none Exam - Physical Exam Narrative exam: Constitutional: Alert, cooperative. No acute distress Head, Ears, Nose: Normocephalic, atraumatic. External ears, nose normal Eyes: Conjunctivae/corneas clear. No icterus. No ptosis. Neck: Supple, no meningeal signs Cardiovascular: S1, S2 + Respiratory: Good air entry, clear to auscultation bilaterally GI: Soft, non-tender; bowel sounds normal. No peritoneal signs Musculoskeletal: No pedal edema, no cyanosis. Skin: No rash or abscess Hem/Lymphatic: No palpable cervical or supraclavicular nodes. No lymphangitis Psych: Mood ok. Affect normal Neurological: Awake, alert, oriented. No gross abnormality - Constitutional Vitals: Temp Pulse Resp BP Pulse Ox 98.1 F 76 16 122/69 98 03/07/22 04:23 03/07/22 10:04 03/07/22 04:23 03/07/22 10:04 03/07/22 10:00 Plan Follow up with: PRIMARY CARE, [Primary Care Provider] - 3-5 Days Prescriptions: hydrALAZINE [Apresoline TAB] 100 mg PO BID 30 Days #60 tab dilTIAZem CD [Cardizem CD] 240 mg PO QDAY 30 Days #30 capsule cloNIDine [Catapres] 0.2 mg PO BID 30 Days #60 tablet cefUROXime [Ceftin] 500 mg PO Q12H 1 Days #2 tab
--- NOTE | 2022-03-07 11:21 | Progress Note ---
Assessment and Plan - follow lower extremity dopplers - discharge planning ongoing concurrently - supplemental oxygen to keep O2 sats > 90% - bronchodilators (PATRICIA) with pulm hygiene per RT - continue to avoid nephrotoxins, renally dose all medications - continue mobility protocols to prevent pressure ulcers - PT/OT as tolerated - Wound care per RN/WCT - continue accuchecks with glycemic control per SSI for target blood glucose < 180 mg/dL - Smoking cessation strongly counseled at the bedside - counseled alcohol and substance abuse cessation also - home oxygen evaluation at discharge - GI & VTE prophylaxis - Flu & pneumovax per protocol - continue other care per attending / other consultants - prn analgesia per pain score ... re-evaluate in am & prn Subjective Date of service: 03/07/22 Principal diagnosis: AMS Interval history: Patient is seen today for: Seen and examined at bedside; 24hour events reviewed; nursing and respiratory care staff consulted; no adverse overnight events reported to me; resting in bed; denies N/V/F/C; awaiting lower extremity dopplers; denies N/V/F/C; alert and appropriate today Objective Vital Signs - 12hr 03/07/22 03/07/22 03/07/22 04:00 04:23 10:00 Temperature 98.1 F Pulse Rate 82 71 Pulse Rate [ 82 From Monitor] Respiratory 22 16 Rate Blood Pressure 104/62 O2 Sat by Pulse 98 97 98 Oximetry 03/07/22 03/07/22 10:03 10:04 Temperature Pulse Rate 76 76 Pulse Rate [ From Monitor] Respiratory Rate Blood Pressure 122/69 122/69 O2 Sat by Pulse Oximetry Constitutional: no acute distress Eyes: non-icteric ENT: oropharynx moist Neck: supple, no lymphadenopathy, no JVD Effort: normal Ascultation: Bilateral: rales Percussion: Bilateral: not dull Cardiovascular: regular rate and rhythm Gastrointestinal: normoactive bowel sounds, soft, non-tender, non-distended Integumentary: normal Extremities: no cyanosis, pulses normal, no ischemia or petechiae, edema Neurologic: non-focal exam, pupils equal and round, CN II-XII normal, motor strength normal and Psychiatric: mood appropriate, affect normal CBC and BMP: 03/07/22 04:15 03/07/22 04:15 ABG, PT/INR, D-dimer: ABG ABG pH 7.232 pH Units (7.350-7.450) L 03/04/22 20:47 ABG pCO2 44.0 mm Hg 03/04/22 20:47 ABG pO2 50.1 mm Hg (80.0-90.0) L 03/04/22 20:47 ABG O2 Saturation 81.8 % (95.0-99.0) L 03/04/22 20:47 PT/INR, D-dimer PT 15.7 Sec. (12.2-14.9) H 03/04/22 12:20 INR 1.12 (0.87-1.13) 03/04/22 12:20 D-Dimer 9294.58 ng/mlDDU (0-234) H 03/05/22 10:19 Abnormal lab findings: Abnormal Labs 03/04/22 03/04/22 03/04/22 12:20 12:20 12:20 WBC 13.1 H Hgb MCH 27 L RDW 16.3 H Plt Count 447 H Lymph % (Auto) Seg Neutrophils % Seg Neuts % (Manual) 78.0 H Lymphocytes % (Manual) 11.0 L Seg Neutrophils # Seg Neutrophils # Man 10.2 H PT 15.7 H D-Dimer 3882.77 H ABG pH ABG pO2 ABG HCO3 ABG O2 Saturation ABG Base Excess ABG Hemoglobin Oxyhemoglobin Sodium Carbon Dioxide 15 L BUN 18 H Creatinine 2.1 H Glucose Lactic Acid Calcium Ferritin AST 206 H ALT 197 H Alkaline Phosphatase 140 H Lactate Dehydrogenase Total Protein 8.5 H Albumin Urine HCG, Qual Salicylates Acetaminophen 03/04/22 03/04/22 03/04/22 12:20 12:20 12:20 WBC Hgb MCH RDW Plt Count Lymph % (Auto) Seg Neutrophils % Seg Neuts % (Manual) Lymphocytes % (Manual) Seg Neutrophils # Seg Neutrophils # Man PT D-Dimer ABG pH ABG pO2 ABG HCO3 ABG O2 Saturation ABG Base Excess ABG Hemoglobin Oxyhemoglobin Sodium Carbon Dioxide BUN Creatinine Glucose Lactic Acid 8.40 H* Calcium Ferritin AST ALT Alkaline Phosphatase Lactate Dehydrogenase Total Protein Albumin Urine HCG, Qual Salicylates < 0.3 L Acetaminophen 5.0 L 03/04/22 03/04/22 03/04/22 12:31 15:49 18:43 WBC Hgb MCH RDW Plt Count Lymph % (Auto) Seg Neutrophils % Seg Neuts % (Manual) Lymphocytes % (Manual) Seg Neutrophils # Seg Neutrophils # Man PT D-Dimer ABG pH ABG pO2 ABG HCO3 ABG O2 Saturation ABG Base Excess ABG Hemoglobin Oxyhemoglobin Sodium Carbon Dioxide BUN Creatinine Glucose Lactic Acid 3.60 H* Calcium Ferritin AST 376 H ALT 344 H Alkaline Phosphatase 161 H Lactate Dehydrogenase Total Protein Albumin Urine HCG, Qual Positive A Salicylates Acetaminophen 03/04/22 03/04/22 03/05/22 20:47 Unknown 07:46 WBC 14.5 H Hgb 10.0 L MCH 27 L RDW 16.6 H Plt Count Lymph % (Auto) 8.8 L Seg Neutrophils % 88.0 H Seg Neuts % (Manual) Lymphocytes % (Manual) Seg Neutrophils # 12.8 H Seg Neutrophils # Man PT D-Dimer ABG pH 7.232 L ABG pO2 50.1 L ABG HCO3 18.1 L ABG O2 Saturation 81.8 L ABG Base Excess -9.0 L ABG Hemoglobin 11.1 L Oxyhemoglobin 79.8 L Sodium Carbon Dioxide BUN Creatinine Glucose Lactic Acid 2.70 H* Calcium Ferritin AST ALT Alkaline Phosphatase Lactate Dehydrogenase Total Protein Albumin Urine HCG, Qual Salicylates Acetaminophen 03/05/22 03/05/22 03/05/22 07:46 07:46 09:33 WBC Hgb MCH RDW Plt Count Lymph % (Auto) Seg Neutrophils % Seg Neuts % (Manual) Lymphocytes % (Manual) Seg Neutrophils # Seg Neutrophils # Man PT D-Dimer ABG pH ABG pO2 ABG HCO3 ABG O2 Saturation ABG Base Excess ABG Hemoglobin Oxyhemoglobin Sodium Carbon Dioxide 20 L BUN Creatinine 1.3 H Glucose 129 H Lactic Acid Calcium 8.3 L Ferritin 290.6 H AST 144 H ALT 249 H Alkaline Phosphatase 143 H Lactate Dehydrogenase 627 H Total Protein Albumin 3.4 L Urine HCG, Qual Salicylates Acetaminophen 03/05/22 03/06/22 03/06/22 10:19 04:07 04:07 WBC 11.5 H Hgb MCH 27 L RDW 16.5 H Plt Count Lymph % (Auto) Seg Neutrophils % Seg Neuts % (Manual) Lymphocytes % (Manual) Seg Neutrophils # Seg Neutrophils # Man PT D-Dimer 9294.58 H ABG pH ABG pO2 ABG HCO3 ABG O2 Saturation ABG Base Excess ABG Hemoglobin Oxyhemoglobin Sodium 136 L Carbon Dioxide 19 L BUN Creatinine Glucose 108 H Lactic Acid Calcium Ferritin AST 52 H ALT 205 H Alkaline Phosphatase 165 H Lactate Dehydrogenase Total Protein Albumin 3.6 L Urine HCG, Qual Salicylates Acetaminophen 03/07/22 03/07/22 04:15 04:15 WBC Hgb MCH 27 L RDW 16.5 H Plt Count Lymph % (Auto) Seg Neutrophils % Seg Neuts % (Manual) Lymphocytes % (Manual) Seg Neutrophils # Seg Neutrophils # Man PT D-Dimer ABG pH ABG pO2 ABG HCO3 ABG O2 Saturation ABG Base Excess ABG Hemoglobin Oxyhemoglobin Sodium 136 L Carbon Dioxide 20 L BUN Creatinine 1.4 H Glucose 114 H Lactic Acid Calcium Ferritin AST ALT 110 H Alkaline Phosphatase 136 H Lactate Dehydrogenase Total Protein Albumin 3.3 L Urine HCG, Qual Salicylates Acetaminophen Prior PFT's, U/S of legs: pending Allied health notes reviewed: nursing
--- NOTE | 2022-03-07 11:24 | Progress Note ---
Assessment and Plan Cultures: 03/04/2022 blood culture: No growth A/P: 31-year-old female with hypertension, substance abuse was admitted to the hospital with unresponsive/confused state, now improving: #Left-sided pneumonia with acute respiratory failure: Improving. #ANTONINO: Resolved #Polysubstance abuse #Transaminitis Recs: -Ok for discharge from ID standpoint on PO Ceftin 500 mg BID to complete total 5 day course (1 more day) -MRSA nasal PCR is negative, discontinued vancomycin Will sign off. Please call with questions. Mukesh Byers MD, FACP, [facility] ([facility] O: [phone] F: [phone] C: [phone] Subjective Date of service: 03/07/22 Principal diagnosis: AMS Interval history: No fever. no cough, no shortness of breath. On room air. Feels well. Wondering if she can go home. Objective - Exam Narrative Exam: Physical Exam: Constitutional: Alert, cooperative. No acute distress Head, Ears, Nose: Normocephalic, atraumatic. External ears, nose normal Eyes: Conjunctivae/corneas clear. No icterus. No ptosis. Neck: Supple, no meningeal signs Cardiovascular: S1, S2 + Respiratory: Good air entry, clear to auscultation bilaterally GI: Soft, non-tender; bowel sounds normal. No peritoneal signs Musculoskeletal: No pedal edema, no cyanosis. Skin: No rash or abscess Hem/Lymphatic: No palpable cervical or supraclavicular nodes. No lymphangitis Psych: Mood ok. Affect normal Neurological: Awake, alert, oriented. No gross abnormality - Constitutional Vitals: Vital Signs Temp Pulse Resp BP Pulse Ox 98.1 F 76 16 122/69 98 03/07/22 04:23 03/07/22 10:04 03/07/22 04:23 03/07/22 10:04 03/07/22 10:00 Temperature -Last 24 Hours Temperature 98.1 F Temperature 98.6 F Temperature 98.8 F Temperature 98.5 F Temperature 98.9 F Temperature 98.6 F - Labs CBC & Chem 7: 03/07/22 04:15 03/07/22 04:15 Labs: Abnormal lab results 04/19/22 04/19/22 Range/Units 04:15 04:15 MCH 27 L (28-32) pg RDW 16.5 H (13.2-15.2) % Sodium 136 L (137-145) mmol/L Carbon Dioxide 20 L (22-30) mmol/L Creatinine 1.4 H (0.6-1.2) mg/dL Glucose 114 H (65-100) mg/dL ALT 110 H (7-56) units/L Alkaline Phosphatase 136 H (35-129) units/L Albumin 3.3 L (3.9-5) g/dL
--- NOTE | 2022-03-07 12:12 | Vascular Lab Report ---
DUPLEX DOPPLER LOWER EXTREMITY VEINS, BILATERAL INDICATION: sweling; hypoxemia. TECHNIQUE: Duplex doppler imaging was performed through the veins of both lower extremities using ve nous compression and other maneuvers. COMPARISON: No relevant prior imaging study available. FINDINGS: Right Common femoral vein: Negative. Right Superficial femoral vein: Negative. Right Popliteal vein: Negative. Right Calf veins: Negative. Left Common femoral vein: Negative. Left Superficial femoral vein: Negative. Left Popliteal vein: Negative. Left Calf veins: Negative. Additional findings: None. IMPRESSION: No sonographic evidence for DVT in either lower extremity. Signer Name: Michael Barrios Jr, MD Signed: 03/07/2022 12:08 PM Workstation Name: [id number]
--- NOTE | 2022-03-08 02:10 | Consultation ---
DATE OF CONSULTATION: 03/06/2022 PULMONARY CRITICAL CARE CONSULT NOTE CONSULTING PHYSICIAN: Dr. Gurmeet Nieto. REASON FOR CONSULTATION: Hypertensive emergency. CHIEF COMPLAINT AND HISTORY OF PRESENT ILLNESS: The patient is a 31-year-old obese female with a past medical history significant amongst other things for alcohol and tobacco dependence, who came into the Emergency Room confused, lethargic, unable to give much of the history. Her kids try to wake her up, but she was unresponsive. They could not tell if she had any seizures or not, but there was no history of seizures. EMS gave her some Narcan. The patient admitted to drug use. She was evaluated for other the Emergency Room. She was hypoxemic with O2 sats of 84% on room air. Chest x-ray revealed pneumonia. She was acidotic and she was diagnosed essentially with a toxic metabolic encephalopathy with acute kidney injury and new onset atrial fibrillation. She was planned to be admitted to the hospital when she was also found that she had a positive drug screen and her blood pressures were significantly elevated. She apparently went from being hypotensive at presentation to develop an systolic blood pressure as high as 183 mmHg with a mean arterial pressure of 138. ICU admission was requested. She was started on a Cardene drip. We were asked to assist with management. When I stopped by to see her, she was resting in bed, Cardene drip had been started at about 5 mg per hour. Systolic blood pressures were at their initial set goal of about 140 mmHg. She was still somnolent and really did not want to give me much of the history. I did get her to deny chest pain. She denied any abdominal pain. She denied any nausea or vomiting and she did nod her head yes when asked about a headache. That really is as much of the history of presentation as I have. PAST MEDICAL HISTORY: Again, significant for history of alcohol abuse, hypertension and a history of tobacco abuse. PAST SURGICAL HISTORY: She has had sections. MEDICATIONS: She was on at the time I stopped by to see according to the medication physician record included the following: Albuterol 2.5 mg nebulized q. 4 hours p.r.n. shortness of breath or wheezing, Tylenol 650 mg p.o. q. 4 hours p.r.n. mild pain or fevers, diltiazem 250 mg p.o. daily, famotidine 20 mg p.o. daily, folic acid 1 mg p.o. daily, heparin 5000 units subcutaneous q.12 hours, hydralazine 10 mg IV q. 6 hours p.r.n. elevated blood pressures as well as 100 mg p.o. b.i.d. scheduled, Dilaudid 0.25 mg IV q. 8 hours p.r.n. moderate pain and 0.5 mg IV q. 12 hours p.r.n. severe pain, vancomycin 1 gram IV daily, Rocephin 1 gram IV daily, nicardipine 5 mg per hour, Ativan 2 mg IV q. 1 hours p.r.n. CIWA score 8-15, Zofran 4 mg IV q. 8 hours p.r.n. nausea and vomiting, Oxycodone 5/325 mg 1 tablet p.o. q. 16 hours p.r.n. moderate pain. ALLERGIES: No known drug allergies. DIET: Obese lady, denies acute weight loss or gain in the preceding few weeks to months. FAMILY AND SOCIAL HISTORY: Lives in the community. She apparently has some kids. Lives with family. She does have a history of alcohol, tobacco and now illicit drug use. FAMILY HISTORY: Otherwise positive for diabetes and hypertension. REVIEW OF SYSTEMS: Difficult to obtain secondary to her mental condition. Since she has been here, no gross hematochezia or melena, no gross hematuria, no hematemesis, no hemoptysis. She denies chest pains. Denies palpitations. Denies polyuria, polydipsia. Complete 13-system review of system was obtained as best as I could. Pertinent positives and/or negatives as in body of history above, otherwise noncontributory. PHYSICAL EXAMINATION: VITAL SIGNS: On presentation, she was afebrile, temperature 97.2 degrees Fahrenheit, pulse of 151, respiratory rate of 19, blood pressure 107/74, O2 sats were 100% at the time I saw her, that was on 2 liters nasal cannula. GENERAL: She is a young, obese female. Normocephalic, atraumatic. Resting in bed with normal respiratory effort at rest. HEAD, EYES, EARS, NOSE AND THROAT: Anicteric. No conjunctival erythema. Oropharynx was moist. NECK: No gross jugular venous distention, no thyromegaly. Grossly, there were no palpable lymph nodes in the supraclavicular or submandibular lymph node chains. LUNGS: Auscultation of both lung callaway faint inspiratory rales in the bases. No wheezing. HEART: Sounds 1 and 2 are heard at the time of my evaluation, regular rate and rhythm without overt rubs or murmurs. ABDOMEN: Soft, full, protuberant. Bowel sounds are positive, nontender, no palpable hepatosplenomegaly. EXTREMITIES: Without overt digital clubbing or cyanosis, no pedal edema. Pedal pulses are 2+ bilaterally. NEUROLOGIC: Pupils are equal, round, about 4 mm, reactive to light. Extraocular muscle movements are intact. She moves all 4 extremities spontaneously. SKIN: Normal turgor in the areas I examined without overt cellulitis or rash. PSYCHIATRIC: Her mood was somewhat depressed. Affect was flat. She still seems to have intact judgment and insight. LABORATORY DATA: From my review are as follows: Admission white cell count 13,100, hemoglobin 12.0, hematocrit 38.2, platelet count 447, 7% band neutrophils at presentation, D-dimer 3882. Arterial blood gas at presentation showed a pH of 7.23, pCO2 of 44, pO2 of 50 on room air. Serum sodium 139, potassium 5.0, chloride 100, bicarbonate 15, BUN 18, creatinine 2.1, glucose was 81. Lactic acid level was 3.6. Now within normal limits. Bilirubin within normal limits. AST was 206, ALT 197. AST peaked at 376 and ALT peaked at 344, now trending back downwards. Urine test was negative. TSH within normal limits. Procalcitonin 0.42. Urinalysis shows negative leukocyte esterase and nitrites. Urine hCG qualitative was positive. Urine drug screen was positive for cocaine and THC. Coronavirus PCR has come back negative. BUN and creatinine now within normal limits. MRSA screen negative. Blood cultures, no growth to date. Chest x-ray shows left greater than right bilateral pulmonary infiltrates and cardiomegaly. I cannot rule out trace pleural effusions. Otherwise, no gross pneumothorax, no gross bony fracture. The pelvic ultrasound, no evidence of intrauterine . A 2D echo was done, ejection fraction lower limits of normal at 50-55%; however, mild diastolic dysfunction, RV systolic at 19 mmHg. ASSESSMENT: 1. Acute hypoxemic respiratory failure. 2. Sepsis at presentation with hypotension at a point. 3. Aspiration pneumonia. 4. Acute toxic metabolic encephalopathy. 5. Acute kidney injury. 6. Cocaine abuse. 7. Nicotine dependence. 8. Alcohol abuse. 9. Elevated serum transaminases. 10. Atrial fibrillation with rapid ventricular response at presentation. 11. Obesity. PLAN: She is doing better. We will continue antibiotics as current, which will be vancomycin and Rocephin. She has been seen by the Infectious Disease doctor. I will defer to him. Certainly, the elevated D-dimers are bothersome. While this is probably due to the sepsis situation and pneumonia, it does warrant a venous thromboembolic disorder workup, especially as she was found down. I will start with bilateral lower extremity Dopplers plus or minus CT angiogram. Cardiology evaluation is ongoing and appropriate. Oxygen will be weaned to keep sats greater than or equal to about 90%. Aspiration precautions will be maintained. The Cardene drip will be stopped. She will be scheduled. I will begin clonidine 0.2 mg p.o. b.i.d. and hold for systolic less than 120. I will add p.r.n. labetalol 10 mg IV q. 6 hours p.r.n. systolic blood pressures greater than 160. Tobacco abuse cessation has been strongly counseled at bedside. Also, better medication compliance has been counseled. With a negative MRSA PCR, I will see if Infectious Disease will be stopping the vancomycin while I do feel this may be an aspiration pneumonia. It may be appropriate to cover for atypicals with azithromycin or to change therapy to Levaquin. She is appropriately on GI and DVT prophylaxis. Flu and pneumonia vaccination will be addressed. Thank you very much for the consult. We will follow along with further recommendations as picture progresses/becomes clearer. She is critically ill on life-sustaining interventions including the Cardene drip at a high risk of from cardiopulmonary system decompensation. At this time, I spent about 35 minutes of critical care time without overlap and excluding any procedural time that may be necessary. TID: [id number] RECEIPT: [id number] MARCELLA/SARAH
== END 2022-03-07 15:55 | disposition home or self-care (01) | DRG 871 ==
LOC: ED 11:49 → IMCU 18:03 → CC1 03-05 18:58 → 3A 03-06 21:25
PROVIDERS: ADMIT Internal Medicine; ATTEND Internal Medicine
PROC: 4A033R1 Measurement of Arterial Saturation, Peripheral, Percutaneous Approach (ICD-10-PCS; principal; 2022-03-04)
DX: A41.9 Sepsis, unspecified organism (principal); J96.01 Acute respiratory failure with hypoxia; G92.9 Unspecified toxic encephalopathy; N17.0 Acute kidney failure with tubular necrosis; J69.0 Pneumonitis due to inhalation of food and vomit; Z20.822 Contact with and (suspected) exposure to COVID-19; F10.20 Alcohol dependence, uncomplicated; R79.89 Other specified abnormal findings of blood chemistry; I48.91 Unspecified atrial fibrillation; I10 Essential (primary) hypertension; N17.9 Acute kidney failure, unspecified; Y90.9 Presence of alcohol in blood, level not specified; Z83.3 Family history of diabetes mellitus; Z82.49 Family history of ischemic heart disease and other diseases of the circulatory system; F17.210 Nicotine dependence, cigarettes, uncomplicated; Z71.6 Tobacco abuse counseling; F14.20 Cocaine dependence, uncomplicated; E87.1 Hypo-osmolality and hyponatremia; E87.8 Other disorders of electrolyte and fluid balance, not elsewhere classified; E46 Unspecified protein-calorie malnutrition
CPT/HCPCS: 36415; 36600; 71045; 76801; 78580; 80053; 80076; 80307; 80320; 81001; 81025; 82140; 82550; 82728; 82803; 83615; 83735; 84145; 84439; 84443; 84702; 85007; 85025; 85027; 85379; 85610; 86140; 86850; 86900; 86901; 87040; 87641; 93005; 93306; 93970; 94760; 99406; G0378; J3490; A9540; C8929; G0480; J0360; J0696; J1644; J2310; J3370; J3411; J7030; J7040; J7050; U0003